=== PATIENT | female | born 1940 | race Caucasian/White ===

== ENCOUNTER 2018-08-28 11:28 | Emergency (ER) | payer OTHER ==
[2018-08-28] MEDS ORDERED: NS 500 ML IV ONE (12:05)
--- NOTE | 2018-08-28 12:10 | EDPHY ---
H & P Stated Complaint: bradycardia Time Seen by Provider: 08/28/18 11:42 HPI/ROS: CHIEF COMPLAINT: Bradycardia Limitations: dementia HISTORY OF PRESENT ILLNESS: 78-year-old female with advanced dementia and anxiety presents with bradycardia. She lives at home with her . This morning he checked her heart rate and heart rate was running in the 40s. She was somewhat sleepy, but otherwise felt normal. No chest pain or shortness of breath. Saw her PCP this morning, who sent her to the emergency department for further evaluation. Her usual heart rate is in the 70s. Started Remeron 3 weeks ago, no other medication changes. No recent illness. Chronic hypoxia, on home O2 at 2 L by nasal cannula. Usual oxygen saturation on room air is 85%. REVIEW OF SYSTEMS: 10 point ROS reviewed with pt and and is negative except for the noted elements in the HPI - Personal History Current Tetanus/Diphtheria Vaccine: Yes Current Tetanus Diphtheria and Acellular Pertussis (TDAP): Yes - Medical/Surgical History Hx Asthma: No Hx Chronic Respiratory Disease: No Hx Diabetes: No Hx Cardiac Disease: No Hx Renal Disease: No Hx Cirrhosis: No Hx Alcoholism: Yes Hx HIV/AIDS: No Hx Splenectomy or Spleen Trauma: No Other PMH: Dementia, HTN, HYPOTHYROID, PE, GERD, chronic pain with narcotic dependence, alcohol abuse. cataract surgery, retina surgery, appendectomy, ankle fusion, right knee surgery - Social History Smoking Status: Never smoked - Physical Exam Exam: General Appearance: Alert, pleasant Eyes: Pupils equal and round, no conjunctival pallor or injection ENT, Mouth: Mucous membranes moist Neck: Normal inspection Respiratory: Lungs are clear to auscultation Cardiovascular: Regular bradycardia Gastrointestinal: Abdomen is soft and nontender Neurological: Alert, nonfocal exam Skin: Warm and dry, no rash Extremities: Normal inspection Psychiatric: Mood and affect normal Constitutional: Initial Vital Signs Temperature (C) 37 C 08/28/18 11:38 Heart Rate 54 L 08/28/18 11:38 Respiratory Rate 16 08/28/18 11:38 Blood Pressure 167/79 H 08/28/18 11:38 O2 Sat (%) 86 L 08/28/18 11:38 O2 Delivery Mode Room Air O2 (L/minute) 2 Allergies/Adverse Reactions: lanolin Allergy (Severe, Verified 08/28/18 11:34) Rash bacitracin Allergy (Verified 08/28/18 11:34) codeine [Codeine] Allergy (Verified 08/28/18 11:34) neomycin Allergy (Verified 08/28/18 11:34) polymyxin B Allergy (Verified 08/28/18 11:34) ADHESIVES Allergy (Uncoded 08/28/18 11:34) Home Medications: Medication Instructions Recorded Aspirin [Aspirin 81mg (*)] 81 mg PO DAILY 06/26/18 Herbals/Supplements -Info Only 1 ea PO DAILY 06/26/18 Levothyroxine [Synthroid 50 mcg 1 mcg PO DAILY06 06/26/18 (*)] Cholecalciferol Vit D3 [Vitamin D3 2,000 units PO DAILY 06/27/18 2000 units tab (OTC)] Cyanocobalamin [Vitamin B12 (*)] 500 mcg PO DAILY 06/27/18 [place]-3 Fatty Acids [Fish Oil 1000 1,000 mg PO DAILY 06/27/18 mg (*)] Sertraline HCl [Zoloft 25mg (*)] 25 mg PO DAILY 07/03/18 Demerol 08/28/18 Medical Decision Making - Diagnostics Imaging Results: Imaging Impressions Chest X-Ray 08/28/18 11:43 Impression: 1. New indistinct linear left basilar opacities that could be related to atelectasis or less likely pneumonia. 2. Stable mild cardiomegaly without maribell failure. Imaging: I viewed and interpreted images myself ED Course/Re-evaluation: This patient presents with a concern for bradycardia. Stat EKG reveals bradycardia, without ischemia or significant dysrhythmia. Laboratory tests are unremarkable. Dr. 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 During her ED observation, she remained bradycardic, with a heart rate ranging from the mid 40s to 60s. Blood pressure remained normal and the patient remained asymptomatic. Ambulated with a steady gait and denied dizziness. Will follow up in the office with [facility]. fixture maker results discussed with Dr. Madrid. The patient was in normal sinus rhythm throughout, with a heart rate mainly in the 70s, occasionally dipping to the 40s. She had a 5 beat run of ventricular tachycardia, asymptomatic. Dr. Madrid suggests following up with PCP. Results d/w pt and . Differential Diagnosis: Includes though is not limited to ventricular dysrhythmia, heart block, hypotension, electrolyte abnormality, acute coronary syndrome - Data Points Laboratory Results: Laboratory Results 08/28/18 12:02 08/28/18 12:02 08/28/18 08/28/18 08/28/18 12:06 12:02 12:02 WBC 8.97 10^3/uL 10^3/uL (3.80-9.50) RBC 4.50 10^6/uL 10^6/uL (4.18-5.33) Hgb 13.0 g/dL g/dL (12.6-16.3) Hct 41.0 % % (38.0-47.0) MCV 91.1 fL fL (81.5-99.8) MCH 28.9 pg pg (27.9-34.1) MCHC 31.7 g/dL L g/dL (32.4-36.7) RDW 13.5 % % (11.5-15.2) Plt Count 156 10^3/uL 10^3/uL (150-400) MPV 8.9 fL fL (8.7-11.7) Neut % (Auto) 57.4 % % (39.3-74.2) Lymph % (Auto) 30.2 % % (15.0-45.0) [place] % (Auto) 8.9 % % (4.5-13.0) Eos % (Auto) 2.9 % % (0.6-7.6) Baso % (Auto) 0.4 % % (0.3-1.7) Nucleat RBC Rel Count 0.0 % % (0.0-0.2) Absolute Neuts (auto) 5.14 10^3/uL 10^3/uL (1.70-6.50) Absolute Lymphs (auto) 2.71 10^3/uL 10^3/uL (1.00-3.00) Absolute Monos (auto) 0.80 10^3/uL 10^3/uL (0.30-0.80) Absolute Eos (auto) 0.26 10^3/uL 10^3/uL (0.03-0.40) Absolute Basos (auto) 0.04 10^3/uL 10^3/uL (0.02-0.10) Absolute Nucleated RBC 0.00 10^3/uL 10^3/uL (0-0.01) Immature Gran % 0.2 % % (0.0-1.1) Immature Gran # 0.02 10^3/uL 10^3/uL (0.00-0.10) Sodium 138 mEq/L mEq/L (135-145) Potassium 4.3 mEq/L mEq/L (3.5-5.2) Chloride 104 mEq/L mEq/L (97-110) Carbon Dioxide 27 mEq/l mEq/l (22-31) Anion Gap 7 mEq/L mEq/L (6-14) BUN 22 mg/dL mg/dL (7-23) Creatinine 1.0 mg/dL mg/dL (0.6-1.0) Estimated GFR 54 Glucose 87 mg/dL mg/dL (70-100) Calcium 8.9 mg/dL mg/dL (8.5-10.4) POC Troponin I 0.00 ng/mL ng/mL (0.00-0.08) Troponin I < 0.012 ng/mL ng/mL (0.000-0.034) NT-Pro-B Natriuret Pep 87 pg/mL pg/mL (0-450) Medications Given: Discontinued Medications Sodium Chloride (Ns) 500 mls @ 0 mls/hr IV ONCE ONE; Wide Open PRN Reason: Protocol Stop: 08/28/18 12:06 Last Admin: 08/28/18 12:15 Dose: 500 mls Point of Care Test Results: Chemistry 08/28/18 12:06 POC Troponin I 0.00 ng/mL ng/mL (0.00-0.08) Departure - Departure Disposition: Home, Routine, Self-Care Clinical Impression: Bradycardia Condition: Good Instructions: Bradycardia (ED) Additional Instructions: Return for dizziness, fainting, increasing weakness or any concerns. Referrals: Fariba Matos MD [Primary Care Provider] - As per Instructions Salinas Madrid MD [Medical Doctor] - As per Instructions (Follow-up in the office.)
[2018-08-28 12:14] LABS: PLATELET COUNT 156 10^3/uL (150-400)
[2018-08-28 14:18] VITALS: BP 170/85
--- NOTE | 2018-08-28 14:33 | CPEKG ---
Test Reason : OPEN Blood Pressure : / mmHG Vent. Rate : 047 BPM Atrial Rate : 047 BPM P-R Int : 165 ms QRS Dur : 092 ms QT Int : 484 ms P-R-T Axes : 046 -13 065 degrees QTc Int : 428 ms Sinus bradycardia Low voltage, extremity leads Confirmed by Maddy Moya ([id number]) on 08/28/2018 2:32:36 PM Referred By: Maddy Moya Confirmed By:Maddy Moya
--- NOTE | 2018-08-28 15:23 | ASMTCMCOM ---
CM Note CM Note Notes: Patient presets to the ED with her Edwar for concerns re bradycardia. See ED report for details. Chart reviewed from previous visits. CM note from 08/05/18 includes detailed social history, LTC planning, etc This CM met with patient and Edwar to check in regarding home support, etc. Patient is alert, pleasant, and answers yes/no questions appropriately. Denies any distress and appears ready to go home. Edwar explains that he has increased home visits (non medical) with [id number] from 3 days per week to 4, and this has been "very helpful". Edwar states that they have a scheduled visit tomorrow with [facility] and that they have worked out the insurance coverage and benefits for these services. Overall, Edwar appears to be managing well and resports that the increased HH/daycare has been helpful. 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 They have 3 adult children in the area including 2 daughters-one of which is an RN-and they are supportive and available "as needed". Edwar acknowledges that he may need to increase HH visits in the future and that he is taking the advice of "everyone" to take care of himself. Patient remains on a waitlist for [facility]/memory care and Edwar has looked into day care options at [facility] as well. This CM assured Edwar that I would reach out to Fariba (point of care specialist) at Dr.. Matos's office to provide an update re patient's visit (Dr. Matos suggested Edwar bring pt. to the ED for concerns of bradycardia). Fariba was confirmed updates from Edwar regading home situation and she believes Edwar is managing better as he has allowed more support in the home. CM aavialble for future needs prn Date Signed: 08/28/2018 03:22 PM Electronically Signed By:Naheed Orantes RN
== END 2018-08-28 14:18 | disposition home or self-care (01) ==
DX: R00.1 Bradycardia, unspecified (principal); E86.9 Volume depletion, unspecified; I10 Essential (primary) hypertension; F03.90 Unspecified dementia, unspecified severity, without behavioral disturbance, psychotic disturbance, mood disturbance, and anxiety; E03.9 Hypothyroidism, unspecified; G89.29 Other chronic pain
CPT/HCPCS: 84484-ER

== ENCOUNTER 2018-11-03 19:59 | Observation (INO) | payer OTHER ==
--- NOTE | 2018-11-03 20:08 | EDPHY ---
H & P Time Seen by Provider: 11/03/18 20:03 HPI/ROS: CHIEF COMPLAINT: Syncope HISTORY OF PRESENT ILLNESS: The patient is a 78-year-old female with a history of dementia who presents emergency department after having syncopal episode. The patient was at the grocery store with her . She is walking behind her when she suddenly dropped to the floor. The patient states she felt lightheaded and slightly dizzy. When I asked her what happened she stated "I fainted."She complained of mild chest pain prior to the incident but has no chest pain at this time. No shortness of breath. She has mild neck pain. No weakness or numbness. EMS reports that she had a normal glucose. She was hemodynamically stable. She has a small laceration under her chin. REVIEW OF SYSTEMS: 10 systems were reveiwed and are negative with the exception of the elements mentioned in the history of present illness. Past Medical/Surgical History: Includes dementia Social history: The patient is . She does not smoke. Smoking Status: Never smoked Physical Exam: Vitals noted GENERAL: No acute distress, alert. C-collar in place HEENT: Eyes normal to inspection, normal pharynx, no signs of dehydration. Chin has a 1 cm laceration. Bleeding controlled. NECK: Normal, supple. Mild diffuse cervical spine tenderness palpation. No deformity. RESPIRATORY: Clear to auscultation bilaterally, no rales, rhonchi or wheezing. No chest wall tenderness. CVS: Regular rate and rhythm, no rubs, murmurs, or gallops. ABDOMEN: Soft, nontender, nondistended, no organomegaly. BACK: Normal to inspection with no bruising, no CVA tenderness. No spinal tenderness. Pelvis: Stable SKIN: Normal color, no rash, warm, dry. No pallor. EXTREMITIES: No pedal edema, no calf tenderness, no Homans sign or cords, no joint swelling. NEURO/PSYCH: Alert and oriented x2, normal mood and affect, normal motor sensory exam. No obvious cranial nerve deficit. Constitutional: Initial Vital Signs Temperature (C) 36.8 C 11/03/18 20:03 Heart Rate 53 L 11/03/18 20:03 Respiratory Rate 16 11/03/18 20:03 Blood Pressure 95/51 L 11/03/18 20:03 O2 Sat (%) 84 L 11/03/18 20:03 O2 Delivery Mode Room Air O2 (L/minute) 6 Allergies/Adverse Reactions: lanolin Allergy (Severe, Verified 08/28/18 11:34) Rash bacitracin Allergy (Verified 08/28/18 11:34) codeine [Codeine] Allergy (Verified 08/28/18 11:34) neomycin Allergy (Verified 08/28/18 11:34) polymyxin B Allergy (Verified 08/28/18 11:34) ADHESIVES Allergy (Uncoded 08/28/18 11:34) Home Medications: Medication Instructions Recorded Aspirin [Aspirin 81mg (*)] 81 mg PO DAILY 06/26/18 Herbals/Supplements -Info Only 1 ea PO DAILY 06/26/18 Levothyroxine [Synthroid 50 mcg 1 mcg PO DAILY06 06/26/18 (*)] Cholecalciferol Vit D3 [Vitamin D3 2,000 units PO DAILY 06/27/18 2000 units tab (OTC)] Cyanocobalamin [Vitamin B12 (*)] 500 mcg PO DAILY 06/27/18 [place]-3 Fatty Acids [Fish Oil 1000 1,000 mg PO DAILY 06/27/18 mg (*)] Sertraline HCl [Zoloft 25mg (*)] 25 mg PO DAILY 07/03/18 Demerol 08/28/18 Medical Decision Making - Diagnostics Imaging Results: Imaging Impressions Chest X-Ray 11/03/18 20:04 Impression: No acute findings in the chest. ED Course/Re-evaluation: I met EMS on arrival. I took report from the supportability engineer. In the emergency department I discussed possible etiologies with the patient. I answered her questions. Laboratory studies, CT imaging, EKG and chest x-ray were ordered. EKG shows sinus rhythm at 54. Normal axis. Normal intervals. Flipped T-waves V1 through V5. EKG was compared with previous EKG from 08/28/2018. On the previous EKG there were no flipped T-waves Patient's white count is elevated 11. Chemistry panel is unremarkable. Troponin is negative. Head CT: No acute disease noted Cervical CT: Please refer the dictated report. The patient has subluxation at C5-C6. Patient has significant degenerative disease and Radiology feels this is most likely degenerative disease rather than acute injury. I rechecked the patient. She had no significant neck tenderness to palpation on repeat exam. She had no focal deficits. I feel the collar was uncomfortable for the patient and this was removed. Discussed the case with Dr. Reece from the hospitalist service. The patient will be admitted for further evaluation for syncopal episode and fall. Differential Diagnosis: My differential includes but is not limited to syncope, ACS, acute CA, dysrhythmia, electrolyte abnormality, sugar abnormality, ischemic CVA, hemorrhagic CVA, dissection, aneurysm - Data Points Laboratory Results: Laboratory Results 11/03/18 20:10 11/03/18 20:10 11/03/18 11/03/18 11/03/18 20:12 20:10 20:10 WBC RBC Hgb Hct MCV MCH MCHC RDW Plt Count MPV Neut % (Auto) Lymph % (Auto) [place] % (Auto) Eos % (Auto) Baso % (Auto) Nucleat RBC Rel Count Absolute Neuts (auto) Absolute Lymphs (auto) Absolute Monos (auto) Absolute Eos (auto) Absolute Basos (auto) Absolute Nucleated RBC Immature Gran % Immature Gran # PT 13.3 SEC SEC (12.0-15.0) INR 1.05 (0.83-1.16) APTT 28.5 SEC SEC (23.0-38.0) Sodium 140 mEq/L mEq/L (135-145) Potassium 3.9 mEq/L mEq/L (3.5-5.2) Chloride 105 mEq/L mEq/L (97-110) Carbon Dioxide 23 mEq/l mEq/l (22-31) Anion Gap 12 mEq/L mEq/L (6-14) BUN 21 mg/dL mg/dL (7-23) Creatinine 1.0 mg/dL mg/dL (0.6-1.0) Estimated GFR 54 Glucose 131 mg/dL H mg/dL (70-100) Calcium 9.3 mg/dL mg/dL (8.5-10.4) POC Troponin I 0.00 ng/mL ng/mL (0.00-0.08) 11/03/18 20:10 WBC 11.01 10^3/uL H 10^3/uL (3.80-9.50) RBC 5.19 10^6/uL 10^6/uL (4.18-5.33) Hgb 15.0 g/dL g/dL (12.6-16.3) Hct 46.8 % % (38.0-47.0) MCV 90.2 fL fL (81.5-99.8) MCH 28.9 pg pg (27.9-34.1) MCHC 32.1 g/dL L g/dL (32.4-36.7) RDW 14.4 % % (11.5-15.2) Plt Count 177 10^3/uL 10^3/uL (150-400) MPV 9.6 fL fL (8.7-11.7) Neut % (Auto) 53.0 % % (39.3-74.2) Lymph % (Auto) 35.4 % % (15.0-45.0) [place] % (Auto) 8.6 % % (4.5-13.0) Eos % (Auto) 2.1 % % (0.6-7.6) Baso % (Auto) 0.5 % % (0.3-1.7) Nucleat RBC Rel Count 0.0 % % (0.0-0.2) Absolute Neuts (auto) 5.83 10^3/uL 10^3/uL (1.70-6.50) Absolute Lymphs (auto) 3.90 10^3/uL H 10^3/uL (1.00-3.00) Absolute Monos (auto) 0.95 10^3/uL H 10^3/uL (0.30-0.80) Absolute Eos (auto) 0.23 10^3/uL 10^3/uL (0.03-0.40) Absolute Basos (auto) 0.06 10^3/uL 10^3/uL (0.02-0.10) Absolute Nucleated RBC 0.00 10^3/uL 10^3/uL (0-0.01) Immature Gran % 0.4 % % (0.0-1.1) Immature Gran # 0.04 10^3/uL 10^3/uL (0.00-0.10) PT INR APTT Sodium Potassium Chloride Carbon Dioxide Anion Gap BUN Creatinine Estimated GFR Glucose Calcium POC Troponin I Point of Care Test Results: Chemistry 11/03/18 20:12 POC Troponin I 0.00 ng/mL ng/mL (0.00-0.08) Departure - Departure Disposition: [facility] Acute Clinical Impression: Syncope Qualifiers: Syncope type: unspecified Qualified Code(s): R55 - Syncope and collapse Laceration of chin Qualifiers: Encounter type: initial encounter Qualified Code(s): S01.81XA - Laceration without foreign body of other part of head, initial encounter Condition: Good Referrals: Fariba Matos MD [Primary Care Provider] - As per Instructions
[2018-11-03 20:18] LABS: PLATELET COUNT 177 10^3/uL (150-400)
[2018-11-03 20:26] LABS: INR 1.05 (0.83-1.16); PROTIME(PATIENT) 13.3 SEC (12.0-15.0)
--- NOTE | 2018-11-03 21:38 | EDPHY ---
IRAIDA Addendum - Addendum .: Procedure: Laceration repair. Verbal consent was obtained from the patient. The 3.5 cm, irregular, T shaped laceration on the right side of the chin was anesthetized in the usual fashion using 6 mL of 1% lidocaine with epinephrine. The wound was irrigated, draped and explored to its base with a gloved finger. There were no deep structures involved. No tendon injury was identified. The wound was repaired with #4, 5- 0 Prolene simple interrupted pattern. Good hemostasis was achieved and patient tolerated procedure well. Bacitracin and clean sterile dressing applied. The procedure was performed by myself.
[2018-11-03] MEDS ORDERED: ACETAMINOPHEN 325 MG TAB PO PRN (21:57)
[2018-11-03] MEDS ORDERED: ONDANSETRON DISINTEGRATING 4 MG TAB PO PRN (21:57)
[2018-11-03] MEDS ORDERED: ONDANSETRON 4 MG/2 ML VIAL IVP PRN (21:57)
--- NOTE | 2018-11-03 22:07 | PDGENHP ---
<Georgia Jensen - Last Filed: 11/03/18 22:33> History and Physical - Chief Complaint Syncope - History of Present Illness This is a 78-year-old female with history of dementia presenting to the emergency room status post syncopal event today at the grocery store with her . She was walking behind him when she fell. He quickly turned around and found her on the ground. When questioning her, she said she felt lightheaded and mildly dizzy before she fell. It is difficult to get a clear picture as to correct events as she has dementia and is a poor historian and her did not witness this fall. At the moment. She denies any pain to her head neck and joints. She did have a laceration on her chin which was stitched up in the emergency room. She had the following images while here: A cervical spine CT without contrast with no definite acute displaced fracture, it was noted a C5 subluxation causing moderate central spinal stenosis however is likely due to degenerative in nature as no acute fracture lines or soft tissue swelling is identified; chest x-ray shows no acute; head CT without IV contrast shows no acute intracranial hemorrhage; EKG sinus rhythm with borderline left axis deviation and nonspecific T-wave abnormalities which is a change from previous EKGs earlier in the year. She did complain of mild chest pain prior to the incident however is not complain of this any longer. Per EMS , glucose was normal. She is being admitted for further workup, treatment, and monitoring. History Information - Allergies/Home Medication List Allergies/Adverse Reactions: lanolin Allergy (Severe, Verified 08/28/18 11:34) Rash bacitracin Allergy (Verified 08/28/18 11:34) codeine [Codeine] Allergy (Verified 08/28/18 11:34) neomycin Allergy (Verified 08/28/18 11:34) polymyxin B Allergy (Verified 08/28/18 11:34) ADHESIVES Allergy (Uncoded 08/28/18 11:34) Home Medications: Aspirin [Aspirin 81mg (*)] 81 mg PO DAILY 06/26/18 [Last Taken 11/03/18] Levothyroxine [Synthroid 50 mcg (*)] 50 mcg PO DAILY06 06/26/18 [Last Taken ] Cholecalciferol Vit D3 [Vitamin D3 2000 units tab (OTC)] 2,000 units PO DAILY [Last Taken 11/03/18] Cyanocobalamin [Vitamin B12 (*)] 500 mcg PO DAILY 06/27/18 [Last Taken 11/03/18] Sidney-3 Fatty Acids [Fish Oil 1000 mg (*)] 1,000 mg PO DAILY 06/27/18 [Last Taken 11/03/18] Mirtazapine 7.5 mg PO DAILY 11/03/18 [Last Taken 11/03/18] Sertraline HCl [Zoloft 50mg (*)] 50 mg PO DAILY 11/03/18 [Last Taken 11/03/18] I have personally reviewed and updated: family history, medical history, social history, surgical history - Past Medical History atrial fibrillation (I do not believe the patient has atrial fibrillation as she recently had a Holter monitor on in July 2018 and found no arrhythmias), dementia, DVT, GERD, hypertension, pulmonary embolism - Surgical History Reports: no pertinent surgical hx - Family History Positive for: non-pertinent - Social History Smoking Status: Never smoked Alcohol Use: None Drug Use: None Additional social history: , at bedside Review of Systems Review of Systems: ROS: 10pt was reviewed & negative except for what was stated in HPI & below Physical Exam Physical Exam: Lab data and imaging were reviewed. White blood cell count: 11.01 Hemoglobin hematocrit: 15.0 and 46.8 Platelet count: 177 Sodium: 140 Potassium: 3.9 Chloride: 105 Carbon dioxide: 23 BUN/Cr: 21/1.0 INR: 1.05 Trop: 0.00 EKG, cervical spine CT, chest x-ray, and head CT: See HPI Temp Pulse Resp BP Pulse Ox 37.0 C 73 16 133/81 H 95 11/03/18 21:42 11/03/18 21:42 11/03/18 21:42 11/03/18 21:42 11/03/18 21:42 O2 (L/minute) 4 Constitutional: uncomfortable Eyes: PERRL, anicteric sclera, EOMI Ears, Nose, Mouth, Throat: hearing normal, ears appear normal, no oral mucosal ulcers, dry mucous membranes Cardiovascular: regular rate and rhythym, no murmur, rub, or gallop, No edema Peripheral Pulses: 2+: dorsalis-pedis (R), dorsalis-pedis (L) Respiratory: no respiratory distress, no rales or rhonchi, clear to auscultation Gastrointestinal: normoactive bowel sounds, soft, non-tender abdomen, no palpable masses Genitourinary: no bladder fullness, no bladder tenderness Skin: abrasion (On right side of chin) Musculoskeletal: full muscle strength, no muscle tenderness, normal joint ROM, no joint effusions Neurologic: sensation intact bilaterally, CN II-XII Intact Psychiatric: not anxious, not encephalopathic, thought process linear, poor memory Lymph, Heme, Immunologic: no cervical LAD, no supraclavicular LAD Lab Data & Imaging Review 11/03/18 20:10 11/03/18 20:10 WBC 11.01 10^3/uL (3.80-9.50) H 11/03/18 20:10 RBC 5.19 10^6/uL (4.18-5.33) 11/03/18 20:10 Hgb 15.0 g/dL (12.6-16.3) 11/03/18 20:10 Hct 46.8 % (38.0-47.0) 11/03/18 20:10 MCV 90.2 fL (81.5-99.8) 11/03/18 20:10 MCH 28.9 pg (27.9-34.1) 11/03/18 20:10 MCHC 32.1 g/dL (32.4-36.7) L 11/03/18 20:10 RDW 14.4 % (11.5-15.2) 11/03/18 20:10 Plt Count 177 10^3/uL (150-400) 11/03/18 20:10 MPV 9.6 fL (8.7-11.7) 11/03/18 20:10 Neut % (Auto) 53.0 % (39.3-74.2) 11/03/18 20:10 Lymph % (Auto) 35.4 % (15.0-45.0) 11/03/18 20:10 [place] % (Auto) 8.6 % (4.5-13.0) 11/03/18 20:10 Eos % (Auto) 2.1 % (0.6-7.6) 11/03/18 20:10 Baso % (Auto) 0.5 % (0.3-1.7) 11/03/18 20:10 Nucleat RBC Rel Count 0.0 % (0.0-0.2) 11/03/18 20:10 Absolute Neuts (auto) 5.83 10^3/uL (1.70-6.50) 11/03/18 20:10 Absolute Lymphs (auto) 3.90 10^3/uL (1.00-3.00) H 11/03/18 20:10 Absolute Monos (auto) 0.95 10^3/uL (0.30-0.80) H 11/03/18 20:10 Absolute Eos (auto) 0.23 10^3/uL (0.03-0.40) 11/03/18 20:10 Absolute Basos (auto) 0.06 10^3/uL (0.02-0.10) 11/03/18 20:10 Absolute Nucleated RBC 0.00 10^3/uL (0-0.01) 11/03/18 20:10 Immature Gran % 0.4 % (0.0-1.1) 11/03/18 20:10 Immature Gran # 0.04 10^3/uL (0.00-0.10) 11/03/18 20:10 PT 13.3 SEC (12.0-15.0) 11/03/18 20:10 INR 1.05 (0.83-1.16) 11/03/18 20:10 APTT 28.5 SEC (23.0-38.0) 11/03/18 20:10 Sodium 140 mEq/L (135-145) 11/03/18 20:10 Potassium 3.9 mEq/L (3.5-5.2) 11/03/18 20:10 Chloride 105 mEq/L (97-110) 11/03/18 20:10 Carbon Dioxide 23 mEq/l (22-31) 11/03/18 20:10 Anion Gap 12 mEq/L (6-14) 11/03/18 20:10 BUN 21 mg/dL (7-23) 11/03/18 20:10 Creatinine 1.0 mg/dL (0.6-1.0) 11/03/18 20:10 Estimated GFR 54 11/03/18 20:10 Glucose 131 mg/dL (70-100) H 11/03/18 20:10 Calcium 9.3 mg/dL (8.5-10.4) 11/03/18 20:10 POC Troponin I 0.00 ng/mL (0.00-0.08) 11/03/18 20:12 Assessment & Plan Plan: This is a 78-year-old female with history of dementia and deep vein thrombosis, GERD, hypertension and pulmonary embolism presenting after an acute syncopal event with unknown origin. #Syncope w/ unknown origin -cycle troponins every 6 hr x2 -continuous tele monitoring -EKG in the morning, and EKG p.r.n. If symptomatic or condition worsens -echo completed in the morning -ordered cards consult however did not speak to Cardiology; will defer to the morning -orthostatic vitals 1 time -physical therapy and occupational therapy to evaluate and treat # vague chest pain -patient reported to ED of mild chest pain prior to the event which was not present during evaluation and for that reason we will perform actions noted above -she was recently placed on a 30 day monitoring which concluded end of July 2018. Impression of this testing was baseline rhythm was normal sinus rhythm with average heart rate of 73 beats per minute. There was no atrial fibrillation noted in this study. There was a normal pre ventricular contraction burden. There was a 5 beat run of ventricular tachycardia without symptoms -Holding ASA and omega-3 for now d/t syncope event #Depression: cont zoloft and remeron #Hypothyroidism: cont L4T Diet: Regular Code: Full VTE ppx: SCDs Dispo: admit to obs <Gustavo Wan - Last Filed: 11/03/18 23:03> History and Physical - History of Present Illness Review of Systems Review of Systems: Physical Exam Physical Exam: Temp Pulse Resp BP Pulse Ox 36.7 C 53 L 16 140/79 H 92 11/03/18 22:26 11/03/18 22:26 11/03/18 22:26 11/03/18 22:26 11/03/18 22:26 O2 (L/minute) 4 Lab Data & Imaging Review 11/03/18 20:10 11/03/18 20:10 WBC 11.01 10^3/uL (3.80-9.50) H 11/03/18 20:10 RBC 5.19 10^6/uL (4.18-5.33) 11/03/18 20:10 Hgb 15.0 g/dL (12.6-16.3) 11/03/18 20:10 Hct 46.8 % (38.0-47.0) 11/03/18 20:10 MCV 90.2 fL (81.5-99.8) 11/03/18 20:10 MCH 28.9 pg (27.9-34.1) 11/03/18 20:10 MCHC 32.1 g/dL (32.4-36.7) L 11/03/18 20:10 RDW 14.4 % (11.5-15.2) 11/03/18 20:10 Plt Count 177 10^3/uL (150-400) 11/03/18 20:10 MPV 9.6 fL (8.7-11.7) 11/03/18 20:10 Neut % (Auto) 53.0 % (39.3-74.2) 11/03/18 20:10 Lymph % (Auto) 35.4 % (15.0-45.0) 11/03/18 20:10 [place] % (Auto) 8.6 % (4.5-13.0) 11/03/18 20:10 Eos % (Auto) 2.1 % (0.6-7.6) 11/03/18 20:10 Baso % (Auto) 0.5 % (0.3-1.7) 11/03/18 20:10 Nucleat RBC Rel Count 0.0 % (0.0-0.2) 11/03/18 20:10 Absolute Neuts (auto) 5.83 10^3/uL (1.70-6.50) 11/03/18 20:10 Absolute Lymphs (auto) 3.90 10^3/uL (1.00-3.00) H 11/03/18 20:10 Absolute Monos (auto) 0.95 10^3/uL (0.30-0.80) H 11/03/18 20:10 Absolute Eos (auto) 0.23 10^3/uL (0.03-0.40) 11/03/18 20:10 Absolute Basos (auto) 0.06 10^3/uL (0.02-0.10) 11/03/18 20:10 Absolute Nucleated RBC 0.00 10^3/uL (0-0.01) 11/03/18 20:10 Immature Gran % 0.4 % (0.0-1.1) 11/03/18 20:10 Immature Gran # 0.04 10^3/uL (0.00-0.10) 11/03/18 20:10 PT 13.3 SEC (12.0-15.0) 11/03/18 20:10 INR 1.05 (0.83-1.16) 11/03/18 20:10 APTT 28.5 SEC (23.0-38.0) 11/03/18 20:10 Sodium 140 mEq/L (135-145) 11/03/18 20:10 Potassium 3.9 mEq/L (3.5-5.2) 11/03/18 20:10 Chloride 105 mEq/L (97-110) 11/03/18 20:10 Carbon Dioxide 23 mEq/l (22-31) 11/03/18 20:10 Anion Gap 12 mEq/L (6-14) 11/03/18 20:10 BUN 21 mg/dL (7-23) 11/03/18 20:10 Creatinine 1.0 mg/dL (0.6-1.0) 11/03/18 20:10 Estimated GFR 54 11/03/18 20:10 Glucose 131 mg/dL (70-100) H 11/03/18 20:10 Calcium 9.3 mg/dL (8.5-10.4) 11/03/18 20:10 POC Troponin I 0.00 ng/mL (0.00-0.08) 11/03/18 20:12 Assessment & Plan Assessment: Laceration of chin (Acute) Syncope (Acute) Plan: Patient seen and evaluated independently and care plan reviewed with MARY Jensen, agree with her assessment and plan as outlined above. Please see separate documentation for further details.
--- NOTE | 2018-11-03 23:12 | HOSPPROG ---
Hospitalist Progress Note Assessment/Plan: 78 yo F with severe dementia, hx of p afib and recurrent episodes concerning for syncope presenting with syncope # syncope: apparently patient has had prior episodes of falling off of couch or other circumstances where there was a question of syncope, several admissions in the last several months without etiology found--has had echo, CTA, brain MRI , 30 day holter monitor and no clear explanation. Thought to be neurogenic possibly in the past with witnessed spells that were not c/w syncope or seizure. Repeat event today and patient feel on face in grocery store. There have been reports of a fib and ? of SSS, in review of OP records she has been having HR in the 40s intermittently and noted to be in the 40s on tele in ER. Plan to monitor on tele, will consult cardiology for for report of holter monitoring etc. Defer echo given one performed in last 6 months. # fall: with facial trauma and laceration repaired in ER, head ct with nothing acute, neck ct with subluxation at c5 thought to be more likely degenerative rather than due to trauma, c collar removed in ER. Currently not reporting neck pain, however if that occurs consider MRI c spine for further eval # dementia: advanced, patient living with independently though home health involved # paroxysmal a fib: noted on prior hospital stays and as above # FTT: overall sounds like patient quite debilitated, reviewing notes APS has been called to the home in the past, though now with home health x 4 months reports situation is better, has had OP hospice eval but remains FC and per hospice note patient very clear about that. PT/OT/CM to be involved. # observation status Patient new to my care. Old records reviewed and summarized as above. Care plan reviewed with ER doctor, hx largely obtained from at bedside given patients dementia, reviewed care plan with MARY Jensen, see separate H&P for further details. Objective: Vital Signs Temp Pulse Resp BP Pulse Ox 36.7 C 53 L 16 140/79 H 92 11/03/18 22:26 11/03/18 22:26 11/03/18 22:26 11/03/18 22:26 11/03/18 22:26 PT 13.3 SEC (12.0-15.0) 11/03/18 20:10 INR 1.05 (0.83-1.16) 04/15/19 20:10 ICD10 Worksheet Patient Problems: Problems Problem Status Onset Laceration of chin Acute Syncope Acute Pulmonary embolism Acute Shortness of breath Acute
--- NOTE | 2018-11-03 23:13 | CPEKG ---
Test Reason : OPEN Blood Pressure : / mmHG Vent. Rate : 054 BPM Atrial Rate : 054 BPM P-R Int : 154 ms QRS Dur : 100 ms QT Int : 462 ms P-R-T Axes : 037 -25 043 degrees QTc Int : 438 ms Sinus rhythm Borderline left axis deviation Low voltage, extremity leads Nonspecific T abnrm, anterolateral leads Confirmed by Lacy Che ([id number]) on 11/03/2018 11:12:26 PM Referred By: Lacy Che Confirmed By:Lacy Che
[2018-11-04] MEDS: LEVOTHYROXINE 50 MCG TAB PO SCH (06:51)
[2018-11-04] MEDS: CYANO/VITAMIN B12 1000 MCG TAB PO SCH (08:28)
[2018-11-04] MEDS: MIRTAZAPINE 15 MG TAB PO SCH (08:29)
[2018-11-04] MEDS: SERTRALINE HCL 50 MG TAB PO SCH (08:29)
[2018-11-04] MEDS: CHOLECALCIFEROL VIT D3 2,000 UNITS TAB/CAP PO SCH (08:29)
[2018-11-04] MEDS ORDERED: NS 1,000 ML IV SCH (12:00)
--- NOTE | 2018-11-04 13:32 | GCON ---
[f rep st] CONSULTATION CARDIOLOGY CONSULTATION REFERRING PHYSICIAN: Chau Fontana DO REASON FOR CONSULTATION: We were asked by Dr. Chau Fontana of [facility] to evaluate the patie nt for her syncope. HISTORY OF PRESENT ILLNESS: The patient is a 78-year-old female with dementia, chronic hypoxic respi ratory failure, hypothyroidism who is admitted for syncope. She has had multiple previous admissions for syncope. Her June admission was reviewed today. Patient is new to me. Patient is able to provide little information about the episode yesterday. She states that she may h ave become lightheaded preceding the event. She denies any current chest pain, dyspnea, palpitations , presyncope, syncope. She is not noting any pain on her chin or other body parts due to her recent fall. It is reported that she was at the grocery store with her yesterday and proceeded to f all. This was not witnessed. She did have a laceration on her chin. Imaging of her head with CT sh owed no acute intracranial hemorrhage or fracture. Cervical spine CT showed no definite acute fractu re. She was noted to be hypotensive at 95/51 with a heart rate of 53 upon arrival. She has proceede d to 30 day event monitoring in July, which showed no atrial fibrillation, pauses, or any signific ant PVC burden. Echo from 06/26/2018 showed shows EF of 64, mild MR, mild TR, and RVSP of 34 mmHg. Consultation note from Dr. Madrid dated 06/28/2018, states that patient had atrial fibrillation seen on the June a dmission. I do not have access to these EKGs from this admission. PAST MEDICAL HISTORY: 1. PAF. 2. Dementia. 3. GERD. 4. Previous PE. 5. Chronic hypoxic respiratory failure. ALLERGIES: To multiple agents including lanolin, bacitracin, codeine, neomycin, polymyxin, adhesives . OUTPATIENT MEDICATIONS: Include levothyroxine, vitamin B12, vitamin D3, aspirin, sertraline, and ome ga-3 fatty acids. SURGICAL HISTORY: Breast biopsy. SOCIAL HISTORY: Patient is a never smoker and does not drink alcohol. She is . PHYSICAL EXAMINATION: VITAL SIGNS: BP of 140/79, heart rate 53, respirations 16, O2 saturation 92% on room air, temp of 98 degrees Fahrenheit. GENERAL: She is a very pleasant female, oriented to shilpi f and place. She states the year is 2018. HEENT: Normocephalic. Eyes are without scleral icterus. She has a large area of ecchymosis under her right chin. HEART: Regular rate and rhythm with no r ubs, gallops, or murmurs. LUNGS: Clear. ABDOMEN: Soft with normoactive bowel sounds. : Withou t Gutierrez present. SKIN: Warm and dry. PSYCH: Patient is calm and has an appropriate mood and affec t for given situation. LABORATORY/IMAGING: CBC with WBC 11.01, hemoglobin 15, hematocrit 46.8, platelet count of 177. BMP with sodium 140, potassium 3.9, chloride 105, CO2 23, BUN 21, creatinine 1, glucose of 131. Troponin s are negative x3. 12-lead ECG personally interpreted demonstrates sinus rhythm with no ST-T wave abnormalities. Telemetry reviewed shows no Damon or tachyarrhythmias. IMPRESSION AND PLAN: The patient presents with an episode of syncope. Syncope. Her orthostatics are significant for a 20 mmHg drop in her blood pressure. Given her demen tia, we would recommend conservative measures, including increased hydration, p.o. intake, compressiv e stockings for ambulation, and walker with a seat for ambulation. We could definitely repeat a cong tor with telemetry monitoring. We would defer implantable monitors at this point given her dementia; however, should her family or primary care physician wish to pursue this, this can be pursued in the outpatient setting. /[id number]/MODL
--- NOTE | 2018-11-04 15:29 | HOSPPROG ---
Hospitalist Progress Note Assessment/Plan: 78 yo F with severe dementia, hx of p afib and recurrent episodes concerning for syncope presenting with syncope # syncope: apparently patient has had prior episodes of falling off of couch or other circumstances where there was a question of syncope, several admissions in the last several months without etiology found--has had echo, CTA, brain MRI , 30 day holter monitor and no clear explanation. Thought to be neurogenic possibly in the past with witnessed spells that were not c/w syncope or seizure. Repeat event on day of admission and patient feel on face in grocery store. There have been reports of a fib and ? of SSS, in review of OP records she has been having HR in the 40s intermittently and noted to be in the 40s on tele in ER. Plan to monitor on tele. Cardiology consulted this AM who recommend repeat 30 day monitor upon discharge. Orthostatic VS positive on admission, will continue maintenance IVF overnight # fall: with facial trauma and laceration repaired in ER, head ct with nothing acute, neck ct with subluxation at c5 thought to be more likely degenerative rather than due to trauma, c collar removed in ER. Currently not reporting neck pain, however if that occurs consider MRI c spine for further eval # dementia: advanced, patient living with independently though home health involved # paroxysmal a fib: noted on prior hospital stays and as above # FTT: overall sounds like patient quite debilitated, reviewing notes APS has been called to the home in the past, though now with home health x 4 months reports situation is better, has had OP hospice eval but remains FC and per hospice note patient very clear about that. PT/OT/CM to be involved. Subjective: Pt reports no complaints this AM Objective: Vital Signs Temp Pulse Resp BP Pulse Ox 36.9 C 66 18 120/66 97 11/04/18 15:07 11/04/18 15:07 11/04/18 15:07 11/04/18 15:07 11/04/18 15:07 PT 13.3 SEC (12.0-15.0) 11/03/18 20:10 INR 1.05 (0.83-1.16) 11/03/18 20:10 - Physical Exam Constitutional: chronically ill appearing Eyes: PERRL Ears, Nose, Mouth, Throat: dry mucous membranes Cardiovascular: bradycardia Respiratory: no respiratory distress Gastrointestinal: soft, non-tender abdomen Skin: warm Musculoskeletal: generalized weakness Neurologic: No AAOx3 Psychiatric: interacting appropriately ICD10 Worksheet Patient Problems: Problems Problem Status Onset Laceration of chin Acute Syncope Acute Pulmonary embolism Acute Shortness of breath Acute
--- NOTE | 2018-11-04 15:54 | ASMTCMCOM ---
CM Note CM Note Notes: Pts case discussed in tx rounds. Pt is a 78 y/o female admitted for a syncopal episode at the grocery store. PT has cleared pt to d/c home with 11/02 supervision. OT has cleared pt home without any needs. CM met w/ pts . Pt is current w/ [facility] for private duty caregivers. Pt has them Saturday- from 10AM-4PM and on evenings if they need it. Pts is available when the caregivers are not there. CM available for changes. Plan: Independent w/ supervision from private duty caregivers Date Signed: 11/04/2018 03:53 PM Electronically Signed By:FARNAZ Cheema
[2018-11-05] MEDS: LEVOTHYROXINE 50 MCG TAB PO SCH (04:50)
--- NOTE | 2018-11-05 05:37 | CPEKG ---
Test Reason : OPEN Blood Pressure : / mmHG Vent. Rate : 053 BPM Atrial Rate : 052 BPM P-R Int : 178 ms QRS Dur : 092 ms QT Int : 456 ms P-R-T Axes : 033 -27 023 degrees QTc Int : 429 ms Sinus rhythm Borderline left axis deviation Low voltage, extremity and precordial leads Nonspecific T abnormalities, anterior leads Compared with 11/03/2018, no signfiicant change Confirmed by Consuelo Razo ([id number]) on 11/05/2018 5:36:52 AM Referred By: Gustavo Wan Confirmed By:Consuelo Razo
[2018-11-05 07:55] VITALS: BP 121/75
[2018-11-05] MEDS: CYANO/VITAMIN B12 1000 MCG TAB PO SCH (10:45)
[2018-11-05] MEDS: SERTRALINE HCL 50 MG TAB PO SCH (10:45)
[2018-11-05] MEDS: MIRTAZAPINE 15 MG TAB PO SCH (10:46)
[2018-11-05] MEDS: CHOLECALCIFEROL VIT D3 2,000 UNITS TAB/CAP PO SCH (10:47)
--- NOTE | 2018-11-05 12:57 | PDDCSUM ---
Discharge Summary Discharge Summary: Date of Admission: 11/03/2018 Date of Discharge: 11/05/2018 Consults: Cardiology Procedures: Head CT, C Spine CT Followup: Cardiology (repeat 30 day monitor), PCP Hospital Course problem List: 78 yo F with severe dementia, hx of p afib and recurrent episodes concerning for syncope presenting with syncope # syncope: apparently patient has had prior episodes of falling off of couch or other circumstances where there was a question of syncope, several admissions in the last several months without etiology found--has had echo, CTA, brain MRI , 30 day holter monitor and no clear explanation. Thought to be neurogenic possibly in the past with witnessed spells that were not c/w syncope or seizure. Repeat event on day of admission and patient feel on face in grocery store. There have been reports of a fib and ? of SSS, in review of OP records she has been having HR in the 40s intermittently and noted to be in the 40s on tele in ER. Plan to monitor on tele. Cardiology consulted who recommend repeat 30 day monitor upon discharge. Orthostatic VS positive on admission, s/p IVF ' # fall: with facial trauma and laceration repaired in ER, head ct with nothing acute, neck ct with subluxation at c5 thought to be more likely degenerative rather than due to trauma, c collar removed in ER. Currently not reporting neck pain, however if that occurs consider MRI c spine for further eval in the future # dementia: advanced, patient living with independently though home health involved # paroxysmal a fib: noted on prior hospital stays and as above # FTT: overall sounds like patient quite debilitated, reviewing notes APS has been called to the home in the past, though now with home health x 4 months reports situation is better, has had OP hospice eval but remains FC and per hospice note patient very clear about that. PT/OT/CM Time spent on discharge was >35 minutes with >50% of time spent on patient education and counseling.
== END 2018-11-05 13:54 | disposition home or self-care (01) ==
LOC: EDUNIT# → F2W 22:19
PROVIDERS: ADMIT Internal Medicine; ATTEND Internal Medicine
PROC: 0HQ1XZZ Repair Face Skin, External Approach (ICD-10-PCS; principal; 2018-11-03)
DX: R55 Syncope and collapse (principal); S01.81XA Laceration without foreign body of other part of head, initial encounter; W18.39XA Other fall on same level, initial encounter; Y92.512 Supermarket, store or market as the place of occurrence of the external cause; Y93.89 Activity, other specified; F03.90 Unspecified dementia, unspecified severity, without behavioral disturbance, psychotic disturbance, mood disturbance, and anxiety; I48.0 Paroxysmal atrial fibrillation; R62.7 Adult failure to thrive; F32.9 Major depressive disorder, single episode, unspecified; E03.9 Hypothyroidism, unspecified; J96.11 Chronic respiratory failure with hypoxia; Z86.711 Personal history of pulmonary embolism
CPT/HCPCS: 12013; 70450; 71046; 72125; 93005; 97161; 97166; 99285; G0378; 84484-ER

== ENCOUNTER 2018-11-22 05:40 | Inpatient (IN) | payer OTHER ==
--- NOTE | 2018-11-22 05:54 | EDPHY ---
H & P Stated Complaint: Chest Pain Source: Patient - Personal History Current Tetanus/Diphtheria Vaccine: Yes Current Tetanus Diphtheria and Acellular Pertussis (TDAP): Yes - Medical/Surgical History Hx Asthma: No Hx Chronic Respiratory Disease: No Hx Diabetes: No Hx Cardiac Disease: No Hx Renal Disease: No Hx Cirrhosis: No Hx Alcoholism: Yes Hx HIV/AIDS: No Hx Splenectomy or Spleen Trauma: No Other PMH: Dementia, HTN, HYPOTHYROID, PE, GERD, chronic pain with narcotic dependence (now done), alcohol abuse. cataract surgery, retina surgery, appendectomy, ankle fusion, right knee surgery - Social History Smoking Status: Never smoked <Dashawn Morillo - Last Filed: 11/22/18 08:13> <Josue Mena - Last Filed: 11/22/18 08:36> Time Seen by Provider: 11/22/18 05:54 HPI/ROS: HPI CHIEF COMPLAINT: Chest pain, right arm pain HISTORY OF PRESENT ILLNESS: This is a 78-year-old female, she has a history of severe dementia, she presents emergency room by private vehicle with her for chest pain. At 4:30 a.m. In the morning or approximately an hour and half ago she complained of substernal chest pain radiating to her right shoulder right arm. She asked her to take her to the emergency room. She now arrives to the emergency room and tells me she still has chest pain. Substernal. However nonradiating. She cannot remember when this started. She also cannot tell me what it feels like. History review of systems somewhat limited due to her underlying mental state dementia. Past Medical History: Significant medical history for dementia severe, AFib, proximal, failure to thrive, PE, GERD, hypertension, syncope Past Surgical History: No recent surgery Social History: Denies drugs alcohol tobacco. at bedside. Family History: Noncontributory ROS REVIEW OF SYSTEMS: 10 Systems were reviewed and negative with the exception of the elements mentioned in the history of present illness. Exam Constitutional triage nursing summary reviewed, vital signs reviewed, awake/ alert. Patient sat 86%. Eyes normal conjunctivae and sclera, EOMI, PERRLA. HENT normal inspection, atraumatic, moist mucus membranes, no epistaxis, neck supple/ no meningismus, no raccoon eyes. Respiratory clear to auscultation bilaterally, normal breath sounds, no respiratory distress, no wheezing. Cardiovascular rate normal, regular rhythm, no murmur, no edema, distal pulses normal. Gastrointestinal soft, non-tender, no rebound, no guarding, normal bowel sounds, no distension, no pulsatile mass. Genitourinary no CVA tenderness. Musculoskeletal no midline vertebral tenderness, full range of motion, no calf swelling, no tenderness of extremities, no meningismus, good pulses, neurovascularly intact. Skin pink, warm, & dry, no rash, skin atraumatic. Neurologic awake, alert and oriented x 3, AAOx3, moves all 4 extremities equally, motor intact, sensory intact, CN II-XII intact, normal cerebellar, normal vision, normal speech. Psychiatric normal mood/affect. Heme/Lymph/Immune no lymphadenopathy. Differential Diagnosis: Differential diagnosis includes but is not limited to: ACS, atypical chest pain, pneumothorax, pneumonia, pulmonary embolism, aortic dissection, congestive heart failure, tumor, musculoskeletal pain, esophageal pain, GERD, peptic ulcer disease, pancreatitis Medical Decision Making: Plan for this patient IV establishment IV fluid bolus , chest x-ray, EKG, troponin, rule out acute coronary syndrome basic labs, aspirin. Re-evaluation: EKG interpretation by me on record in [employer] system. Impression time of EKG 5:57 a.m., sinus rhythm rate of 68, there are T-wave abnormality seen in V1 V2 V3 similar to previous EKG dated 11/03/2018, additionally T-wave abnormality lead 3. T-wave abnormalities V4 V5 V6 lateral. Similar to previous EKG. No ST elevation. Troponin 0.13. Aspirin ordered. ED x-ray chest one view negative for acute cardiopulmonary disease. EKG interpretation by me on record in [employer] system. Impression time of EKG 7:20 a.m. Sinus rhythm rate of 54, no ST elevation, Q-waves noted V1 V2 V3 with T-wave abnormalities. T-waves are upright in V4 V5 V6 when they were down before. 7:31 a.m. patient is chest pain-free. Denies any chest pain. Full-dose aspirin as been given. Admit to the hospitalist service. Consult Cardiology. Patient did have a elevated D-dimer at 5. Patient's troponin positive at 0.13. EKG has some T-wave abnormalities. Given the elevated D-dimer and hypoxia plan for CT angiogram of the chest. 7:35 a.m. I did consult Cardiology for elevated troponin and chest pain. Dr. Madrid I will consult the hospitalist service for admission. Patient accepted by hospitalist service. Dr. Dela Cruz. CT A pending. Dr. Mena to follow up CTA (Dashawn Morillo) Constitutional: Initial Vital Signs Temperature (C) 36.7 C 11/22/18 05:45 Heart Rate 76 11/22/18 05:45 Respiratory Rate 18 11/22/18 05:45 Blood Pressure 130/89 H 11/22/18 05:45 O2 Sat (%) 86 L 11/22/18 05:45 O2 Delivery Mode Nasal Cannula O2 (L/minute) 2 Allergies/Adverse Reactions: lanolin Allergy (Severe, Verified 11/22/18 05:44) Rash bacitracin Allergy (Verified 11/22/18 05:44) codeine [Codeine] Allergy (Verified 11/22/18 05:44) neomycin Allergy (Verified 11/22/18 05:44) polymyxin B Allergy (Verified 11/22/18 05:44) ADHESIVES Allergy (Uncoded 11/22/18 05:44) Home Medications: Medication Instructions Recorded Aspirin [Aspirin 81mg (*)] 81 mg PO DAILY 06/26/18 Levothyroxine [Synthroid 50 mcg 50 mcg PO DAILY06 06/26/18 (*)] Cholecalciferol Vit D3 [Vitamin D3 2,000 units PO DAILY 06/27/18 2000 units tab (OTC)] Cyanocobalamin [Vitamin B12 (*)] 500 mcg PO DAILY 06/27/18 [place]-3 Fatty Acids [Fish Oil 1000 1,000 mg PO DAILY 06/27/18 mg (*)] Mirtazapine 7.5 mg PO DAILY 11/03/18 Sertraline HCl [Zoloft 50mg (*)] 50 mg PO DAILY 11/03/18 Medical Decision Making <Dashawn Morillo - Last Filed: 11/22/18 08:13> - Diagnostics Imaging: Discussed imaging studies w/ clinical haematologist Radiologist, I viewed and interpreted images myself <Josue Mena - Last Filed: 11/22/18 08:36> - Diagnostics Imaging Results: Imaging Impressions Chest X-Ray 11/22/18 06:04 Impression: Basilar atelectasis with no definite acute findings. The patient subsequently underwent CT chest. ED Course/Re-evaluation: 07: I assumed care of this patient at shift change from Dr. Morillo. 0827: I spoke with Dr. Crowley, radiologist, who reports that the patient has subacute and acute PE's. I have given her low molecular weight heparin and will page the hospitalist for an update. 0834: I consulted with the hospitalist service regarding this patient. The patient is a possible TPA candidate as she has an elevated troponin and significant clot burden in the lungs. Patient has been transferred to the floor at this time. (Josue Mena) - Data Points Laboratory Results: Laboratory Results 11/22/18 06:51 11/22/18 06:00 11/22/18 11/22/18 11/22/18 06:51 06:51 06:03 WBC 6.52 10^3/uL 10^3/uL (3.80-9.50) RBC 4.52 10^6/uL 10^6/uL (4.18-5.33) Hgb 12.9 g/dL g/dL (12.6-16.3) Hct 41.3 % % (38.0-47.0) MCV 91.4 fL fL (81.5-99.8) MCH 28.5 pg pg (27.9-34.1) MCHC 31.2 g/dL L g/dL (32.4-36.7) RDW 14.9 % % (11.5-15.2) Plt Count 207 10^3/uL 10^3/uL (150-400) MPV 9.2 fL fL (8.7-11.7) Neut % (Auto) 61.5 % % (39.3-74.2) Lymph % (Auto) 23.3 % % (15.0-45.0) Love % (Auto) 10.3 % % (4.5-13.0) Eos % (Auto) 4.1 % % (0.6-7.6) Baso % (Auto) 0.5 % % (0.3-1.7) Nucleat RBC Rel Count 0.0 % % (0.0-0.2) Absolute Neuts (auto) 4.01 10^3/uL 10^3/uL (1.70-6.50) Absolute Lymphs (auto) 1.52 10^3/uL 10^3/uL (1.00-3.00) Absolute Monos (auto) 0.67 10^3/uL 10^3/uL (0.30-0.80) Absolute Eos (auto) 0.27 10^3/uL 10^3/uL (0.03-0.40) Absolute Basos (auto) 0.03 10^3/uL 10^3/uL (0.02-0.10) Absolute Nucleated RBC 0.00 10^3/uL 10^3/uL (0-0.01) Immature Gran % 0.3 % % (0.0-1.1) Immature Gran # 0.02 10^3/uL 10^3/uL (0.00-0.10) PT 12.6 SEC SEC (12.0-15.0) INR 0.98 (0.83-1.16) APTT 23.8 SEC SEC (23.0-38.0) D-Dimer 5.20 ug/mLFEU H ug/mLFEU (0.00-0.50) Sodium Potassium Chloride Carbon Dioxide Anion Gap BUN Creatinine Estimated GFR Glucose Calcium Magnesium Total Bilirubin Conjugated Bilirubin Unconjugated Bilirubin AST ALT Alkaline Phosphatase POC Troponin I 0.13 ng/mL H ng/mL (0.00-0.08) NT-Pro-B Natriuret Pep Total Protein Albumin Lipase 11/22/18 11/22/18 11/22/18 06:00 06:00 06:00 WBC REJ RBC REJ Hgb REJ Hct REJ MCV REJ MCH REJ MCHC REJ RDW REJ Plt Count REJ MPV REJ Neut % (Auto) REJ Lymph % (Auto) REJ Love % (Auto) REJ Eos % (Auto) REJ Baso % (Auto) REJ Nucleat RBC Rel Count REJ Absolute Neuts (auto) REJ Absolute Lymphs (auto) REJ Absolute Monos (auto) REJ Absolute Eos (auto) REJ Absolute Basos (auto) REJ Absolute Nucleated RBC REJ Immature Gran % REJ Immature Gran # REJ PT REJ INR REJ APTT REJ D-Dimer REJ Sodium 141 mEq/L mEq/L (135-145) Potassium 4.5 mEq/L mEq/L (3.5-5.2) Chloride 106 mEq/L mEq/L (97-110) Carbon Dioxide 23 mEq/l mEq/l (22-31) Anion Gap 12 mEq/L mEq/L (6-14) BUN 14 mg/dL mg/dL (7-23) Creatinine 0.8 mg/dL mg/dL (0.6-1.0) Estimated GFR > 60 Glucose 99 mg/dL mg/dL (70-100) Calcium 9.4 mg/dL mg/dL (8.5-10.4) Magnesium 1.9 mg/dL mg/dL (1.6-2.3) Total Bilirubin 0.8 mg/dL mg/dL (0.1-1.4) Conjugated Bilirubin 0.2 mg/dL mg/dL (0.0-0.5) Unconjugated Bilirubin 0.6 mg/dL mg/dL (0.0-1.1) AST 24 IU/L IU/L (14-46) ALT 19 IU/L IU/L (9-52) Alkaline Phosphatase 92 IU/L IU/L (38-126) POC Troponin I NT-Pro-B Natriuret Pep 119 pg/mL pg/mL (0-450) Total Protein 7.5 g/dL g/dL (6.3-8.2) Albumin 4.1 g/dL g/dL (3.5-5.0) Lipase 288 IU/L IU/L (23-300) Medications Given: Discontinued Medications Aspirin Buffered (Aspirin Ec) 325 mg PO EDNOW ONE Stop: 11/22/18 06:28 Last Admin: 11/22/18 06:30 Dose: 325 mg Sodium Chloride (Ns) 1,000 mls @ 0 mls/hr IV EDNOW ONE; Wide Open PRN Reason: Protocol Stop: 11/22/18 06:05 Last Admin: 11/22/18 06:09 Dose: 1,000 mls Point of Care Test Results: Chemistry 11/22/18 06:03 POC Troponin I 0.13 ng/mL H ng/mL (0.00-0.08) Departure <Dashawn Morillo - Last Filed: 11/22/18 08:13> <Josue Mena - Last Filed: 11/22/18 08:36> - Departure Disposition: [facility] Inpatient Acute Clinical Impression: Hypoxia, Elevated troponin Chest pain Qualifiers: Chest pain type: other chest pain Qualified Code(s): R07.89 - Other chest pain ; R07.8 - Other chest pain Pulmonary embolism Qualifiers: Pulmonary embolism type: other Chronicity: unspecified Acute cor pulmonale presence: with acute cor pulmonale Qualified Code(s): I26.09 - Other pulmonary embolism with acute cor pulmonale Condition: Fair
[2018-11-22] MEDS ORDERED: NS 1,000 ML IV ONE (06:04)
[2018-11-22] MEDS ORDERED: ASPIRIN EC 325 MG TAB PO ONE (06:27)
[2018-11-22 07:11] LABS: PLATELET COUNT 207 10^3/uL (150-400)
[2018-11-22 07:21] LABS: INR 0.98 (0.83-1.16); PROTIME(PATIENT) 12.6 SEC (12.0-15.0)
[2018-11-22] MEDS ORDERED: HEPARIN/DEXTROSE 500 ML IV ONE (07:34)
[2018-11-22] MEDS ORDERED: HEPARIN 10,000 UNIT/10 ML MDV (1,000 UNIT/ML) IVP ONE (07:34)
[2018-11-22] MEDS ORDERED: IOPAMIDOL (ISOVUE 370) 100 ML BTL IV ONE (07:36)
--- NOTE | 2018-11-22 08:23 | CPEKG ---
Test Reason : OPEN Blood Pressure : / mmHG Vent. Rate : 068 BPM Atrial Rate : 068 BPM P-R Int : 153 ms QRS Dur : 112 ms QT Int : 471 ms P-R-T Axes : 019 -26 -04 degrees QTc Int : 502 ms Sinus rhythm Prolonged QT interval Confirmed by Dashawn Morillo ([id number]) on 11/22/2018 8:23:07 AM Referred By: Dashawn Morillo Confirmed By:Dashawn Morillo
--- NOTE | 2018-11-22 08:23 | CPEKG ---
Test Reason : OPEN Blood Pressure : / mmHG Vent. Rate : 054 BPM Atrial Rate : 054 BPM P-R Int : 173 ms QRS Dur : 087 ms QT Int : 466 ms P-R-T Axes : 014 -19 -02 degrees QTc Int : 442 ms Sinus rhythm Borderline left axis deviation Anteroseptal infarct, age indeterminate Confirmed by Dashawn Morillo ([id number]) on 11/22/2018 8:23:04 AM Referred By: Dashawn Morillo Confirmed By:Dashawn Morillo
[2018-11-22] MEDS: ENOXAPARIN 80 MG/0.8 ML SYR SC SCH ×2 (08:45→20:58)
[2018-11-22] MEDS ORDERED: IPRATROPIUM/ALBUTEROL 3 ML DEYVIAL IH PRN (09:09)
[2018-11-22] MEDS ORDERED: ONDANSETRON DISINTEGRATING 4 MG TAB PO PRN (09:09)
[2018-11-22] MEDS ORDERED: OXYCODONE/APAP 5/325 TAB PO PRN (09:09)
[2018-11-22] MEDS ORDERED: ONDANSETRON 4 MG/2 ML VIAL IVP PRN (09:09)
[2018-11-22] MEDS ORDERED: LORazepam 0.5 MG TAB PO PRN (09:09)
[2018-11-22] MEDS ORDERED: ACETAMINOPHEN 325 MG TAB PO PRN (09:09)
--- NOTE | 2018-11-22 10:20 | PDCARCONS ---
Cardiology Consult Reason for Consult: elevated troponin Chief Complaint: chest pains Requesting Physician: ER/Hospitalist team History of Present Illness: Patient is a 78 y/o female with severe dementia, HTN, hypothyroidism, pulmonary emboli, pAF (not on anticoagulation given degree of dementia and falls), and GERD, who presents to the ER at [facility] with complaints of chest discomfort. Discomfort was reportedly a "pain". Symptoms began at 0430 this morning. Ultimately, the patient's brought her to the ER for evaluation. In the ER, given the symptoms reported, ECG and cardiac labs were obtained. No dynamic ST/T wave changes were noted (sinus bradycardia with non specific ST/T wave changes). Troponin with mild elevation noted (0.13). D-dimer was elevated to >5, and CT to rule out pulmonary emboli was performed. This testing with both segmental and subsegmental emboli noted. At present, the patient is resting comfortably. has gone home. Patient 's ability to communicate is fair, but dementia provides a significant limitation. At this point in time, the patient is a full COR. 12 point review of systems was unremarkable, but, as stated above, there is a significant limitation to the information obtained from the patient. History Information - Allergies/Home Medication List Allergies/Adverse Reactions: lanolin Allergy (Severe, Verified 11/22/18 05:44) Rash bacitracin Allergy (Verified 11/22/18 05:44) codeine [Codeine] Allergy (Verified 11/22/18 05:44) neomycin Allergy (Verified 11/22/18 05:44) polymyxin B Allergy (Verified 11/22/18 05:44) ADHESIVES Allergy (Uncoded 11/22/18 05:44) Home Medications: Aspirin [Aspirin 81mg (*)] 81 mg PO DAILY@06/26/18 [Last Taken 11/03/18] Levothyroxine [Synthroid 50 mcg (*)] 50 mcg PO DAILY06/26/18 [Last Taken ] Cholecalciferol Vit D3 [Vitamin D3 2000 units tab (OTC)] 2,000 units PO DAILY@ 06/27/18 [Last Taken 11/03/18] Cyanocobalamin [Vitamin B12 (*)] 500 mcg PO DAILY@06/27/18 [Last Taken ] [place]-3 Fatty Acids [Fish Oil 1000 mg (*)] 1,000 mg PO DAILY 06/27/18 [Last Taken 11/03/18] Mirtazapine 7.5 mg PO DAILY@12 11/03/18 [Last Taken 11/03/18] Sertraline HCl [Zoloft 50mg (*)] 50 mg PO DAILY 11/03/18 [Last Taken 11/03/18] I have personally reviewed and updated: family history, medical history, social history, surgical history Past Medical History: - Past Medical History atrial fibrillation, dementia, GERD, hypertension, pulmonary embolism Additional medical history: hypothyroidism - Surgical History Reports: no pertinent surgical hx - Family History Positive for: non-pertinent - Social History Smoking Status: Never smoked Alcohol Use: None Drug Use: None Cardiac History - Cardiac History Cardiac Risk Factors: hypertension (>140/90), age > 65 Timing/Duration: Hours Severity: moderate Severity Scale: 6 Location: shoulder Activities at Onset: none Modifying Factors: improves with: oxygen, rest Associated Symptoms: chest pain Physical Exam Physical Exam: Temp Pulse Resp BP Pulse Ox 36.6 C 49 L 16 151/76 H 92 11/22/18 09:14 11/22/18 09:14 11/22/18 09:14 11/22/18 09:14 11/22/18 09:14 O2 (L/minute) 4 Constitutional: no apparent distress, appears nourished, not in pain Eyes: PERRL, EOMI Ears, Nose, Mouth, Throat: moist mucous membranes, hearing normal, ears appear normal Cardiovascular: regular rate and rhythym, no murmur, rub, or gallop, pulses symmetric bilaterally, No JVD Peripheral Pulses: 2+: dorsalis-pedis (R), dorsalis-pedis (L) Respiratory: no respiratory distress, no rales or rhonchi, clear to auscultation Gastrointestinal: normoactive bowel sounds Skin: warm, No rash Musculoskeletal: full muscle strength, no muscle tenderness Neurologic: sensation intact bilaterally, CN II-XII Intact Psychiatric: encephalopathic, depressed, flat affect, poor memory Lab and Imaging 11/22/18 06:51 11/22/18 06:00 WBC 6.52 10^3/uL (3.80-9.50) 11/22/18 06:51 RBC 4.52 10^6/uL (4.18-5.33) 11/22/18 06:51 Hgb 12.9 g/dL (12.6-16.3) 11/22/18 06:51 Hct 41.3 % (38.0-47.0) 11/22/18 06:51 MCV 91.4 fL (81.5-99.8) 11/22/18 06:51 MCH 28.5 pg (27.9-34.1) 11/22/18 06:51 MCHC 31.2 g/dL (32.4-36.7) L 11/22/18 06:51 RDW 14.9 % (11.5-15.2) 11/22/18 06:51 Plt Count 207 10^3/uL (150-400) 11/22/18 06:51 MPV 9.2 fL (8.7-11.7) 11/22/18 06:51 Neut % (Auto) 61.5 % (39.3-74.2) 11/22/18 06:51 Lymph % (Auto) 23.3 % (15.0-45.0) 11/22/18 06:51 [place] % (Auto) 10.3 % (4.5-13.0) 11/22/18 06:51 Eos % (Auto) 4.1 % (0.6-7.6) 11/22/18 06:51 Baso % (Auto) 0.5 % (0.3-1.7) 11/22/18 06:51 Nucleat RBC Rel Count 0.0 % (0.0-0.2) 11/22/18 06:51 Absolute Neuts (auto) 4.01 10^3/uL (1.70-6.50) 11/22/18 06:51 Absolute Lymphs (auto) 1.52 10^3/uL (1.00-3.00) 11/22/18 06:51 Absolute Monos (auto) 0.67 10^3/uL (0.30-0.80) 11/22/18 06:51 Absolute Eos (auto) 0.27 10^3/uL (0.03-0.40) 11/22/18 06:51 Absolute Basos (auto) 0.03 10^3/uL (0.02-0.10) 11/22/18 06:51 Absolute Nucleated RBC 0.00 10^3/uL (0-0.01) 11/22/18 06:51 Immature Gran % 0.3 % (0.0-1.1) 11/22/18 06:51 Immature Gran # 0.02 10^3/uL (0.00-0.10) 11/22/18 06:51 PT 12.6 SEC (12.0-15.0) 11/22/18 06:51 INR 0.98 (0.83-1.16) 11/22/18 06:51 APTT 23.8 SEC (23.0-38.0) 11/22/18 06:51 D-Dimer 5.20 ug/mLFEU (0.00-0.50) H 11/22/18 06:51 Sodium 141 mEq/L (135-145) 11/22/18 06:00 Potassium 4.5 mEq/L (3.5-5.2) 11/22/18 06:00 Chloride 106 mEq/L (97-110) 11/22/18 06:00 Carbon Dioxide 23 mEq/l (22-31) 11/22/18 06:00 Anion Gap 12 mEq/L (6-14) 11/22/18 06:00 BUN 14 mg/dL (7-23) 11/22/18 06:00 Creatinine 0.8 mg/dL (0.6-1.0) 11/22/18 06:00 Estimated GFR > 60 11/22/18 06:00 Glucose 99 mg/dL (70-100) 11/22/18 06:00 Calcium 9.4 mg/dL (8.5-10.4) 11/22/18 06:00 Magnesium 1.9 mg/dL (1.6-2.3) 11/22/18 06:00 Total Bilirubin 0.8 mg/dL (0.1-1.4) 11/22/18 06:00 Conjugated Bilirubin 0.2 mg/dL (0.0-0.5) 11/22/18 06:00 Unconjugated Bilirubin 0.6 mg/dL (0.0-1.1) 11/22/18 06:00 AST 24 IU/L (14-46) 05/04/19 06:00 ALT 19 IU/L (9-52) 11/22/18 06:00 Alkaline Phosphatase 92 IU/L (38-126) 11/22/18 06:00 POC Troponin I 0.00 ng/mL (0.00-0.08) 11/22/18 07:41 NT-Pro-B Natriuret Pep 119 pg/mL (0-450) 11/22/18 06:00 Total Protein 7.5 g/dL (6.3-8.2) 11/22/18 06:00 Albumin 4.1 g/dL (3.5-5.0) 11/22/18 06:00 Lipase 288 IU/L (23-300) 11/22/18 06:00 Visualized and Interpreted Chest x-ray results: Yes Chest X-ray Interpretation: normal heart size, infiltrate (atelectasis) EKG Interpretation: Positive for: normal sinsus rhythm, NS ST wave abnormalities Telemetry: normal sinus rhythm Echocardiogram: not performed A/P Assessment: Patient is a 78 y/o female with severe dementia, HTN, pAF (history, not on anticoagulation for this diagnosis given dementia and fall risk), hypothyroidism , history of PE, and GERD, who presented to [facility] ER via private transport with complaints of chest pains. ECG without dynamic ST/T wave changes noted. Minor elevation in troponin was noted, and elevation of d-dimer. Given the d-dimer ( and history of PE), CT was performed, and this revealed both segmental and subsegmental pulmonary emboli. Patient was given a dose of lovenox in the ER and sent to the PCU. On the floor, the patient is without cardiovascular complaints. Memory is very poor. has left the hospital to go home. Plan: Cardiology recommends conversations with patient and about fpc plans. Would continue therapy on lovenox for the time being, but concerns about coumadin therapy given level of dementia and fall history. Palliative care consult has been requested for further discussions about home care/ therapy. Would maintain therapy on ASA. Would continue synthroid for history of hypothyroidism Cardiology can follow with this patient over her hospital stay Would trend the troponin (am assessment)
[2018-11-22] MEDS: ASPIRIN 81 MG CHEWABLE TAB PO SCH (11:02)
--- NOTE | 2018-11-22 15:22 | ECHO ---
[email or web address] [address] Main: [phone] Echocardiography Examination Transthoracic Name: WALKER SAEED MR#: [id number] Study Date: 11/22/2018 Study Time: 09:31 AM Date of : 1940 Age: 78 year(s) Height: 170.2 cm (67 in.) Weight: 74.84 kg (165 lb.) BSA: 1.86 m2 Gender: Female Examination: Echo Contrast: Image Quality: Adequate Rhythm: Normal sinus rhythm Heart Rate: 54 bpm BP: 151 mmHg/76 mmHg Indication: PE, CP Procedure Staff Referring Physician: Director Of Clinical Education: Ashlie Maldonado [facility] Reading Physician: Salinas Madrid MD Requesting Provider: Ordering Physician: Jinny Dela Cruz Indication: PE, CP Measurements Chambers AV/MV Label Value Normal Value Label Value Normal Value LVOT Vmax 0.85 m/s (0.7m/s - 1.1m/s) AV PGmax 8 mmHg LVOTd 2 cm (1.8cm - 2cm) AV Vmax 1.38 m/s LVDd, 2D 4.7 cm (3.9cm - 5.3cm) LEONORA (Vmax) 1.9 cm2 LVDs, 2D 3.2 cm (2.1cm - 4cm) MV E Vmax 0.64 m/s IVSd, 2D 1.1 cm (0.6cm - 1.1cm) MV A Vmax 0.64 m/s LVPWd, 2D 0.9 cm MV E/A 1 LVEF, BP 68 % (55% - 70%) MV E/E' lateral 7.3 LVEF, 2D 60 % (54% - 74%) MV E/E' septal 12.3 (0.45 - 1.25) RVDd, 2D 3.5 cm (1.9cm - 3.8cm) MV DT 232 ms TAPSE 1.9 cm MV E' septal 0.05 m/s LA Volume, BP 54 ml (22ml - 52ml) MV E' lateral 0.09 m/s LADs, 2D 3.5 cm (2.7cm - 3.8cm) MV E/E' mean 9.14 LAESV index, BP 29 ml/m2 MV E' mean 0.07 m/s Additional Vessels TV/PV Label Value Normal Value Label Value Normal Value AoAsc 3.6 cm RA Pressure 5 mmHg AoRoot, 2D 3.3 cm (1.4cm - 2.6cm) RVSP 31 mmHg TR Pmax 26 mmHg TR Vmax 2.55 m/s Patient: WALKER SAEED Study Date: 11/22/2018 Page 1 of 3 09:31 AM PV PGmax 3 mmHg PV Vmax, Caliper 0.82 m/s (0.6m/s - 0.9m/s) Conclusions (1) Left ventricular systolic ejection fraction was normal (68%) - normal wall motion (2) Normal RV size and function (3) Normal atrial dimensions (4) Mild MR with mildly thickened leaflets (5) Trileaflet aortic valve without sclerosis or insufficiency (6) Mild TR - RVSP was 31 mm Hg (7) Normal aortic dimensions (8) No pericardial effusion Findings Left Ventricle: Left ventricle is normal in size. Normal global systolic left ventricular function. EF evaluated by EF (biplane Fierro's). The ejection fraction, measured by Simpsons method, is 68 %. EF range is estimated at 65 % - 70 %. Left ventricle wall thickness is normal. There are no regional wall motion abnormalities. Left ventricular diastolic function parameters are normal. Right Ventricle: Normal size right ventricle. Right ventricular systolic function is normal. Left Atrium: The left atrium is normal in size. IAS: Normal appearing atrial septum. Right Atrium: The right atrium is normal in size. Mitral Valve: Mitral valve is normal in appearance. Mild mitral regurgitation. No mitral valve stenosis. There is mild mitral thickening. Aortic Valve: Aortic leaflets exhibit normal cuspal separation. No aortic valve regurgitation. There is no aortic stenosis. Tricuspid Valve: Tricuspid valve leaflets are normal in appearance and function. Mild tricuspid regurgitation. No tricuspid valve stenosis. Right Ventricular systolic pressure is measured at 31 mmHg. Pulmonary artery pressure is upper limits of normal. Pulmonic Valve: Pulmonic leaflets exhibit normal cuspal separation. No pulmonic valve regurgitation is evident. There is no pulmonic valve stenosis. Aorta: The aorta is normal. The aortic root size in 2D measures 3.3 cm. The ascending aorta measures 3.6 cm. Aorta Measurements AoRoot, 2D is 3.3 cm. IVC: The inferior vena cava is normal in size and course. Pericardium: A pericardial fat pad is present. No pericardial effusion. No pleural effusion present. Exam Details Procedure Ordered: Echo Procedure Status: Routine study Image Quality: Adequate Facility Location: Cardiac Echo 1 Patient: WALKER SAEED Study Date: 11/22/2018 Page 2 of 3 09:31 AM (No Signature Object) Patient: WALKER SAEED Study Date: 11/22/2018 Page 3 of 3 09:31 AM [id number]
--- NOTE | 2018-11-22 15:55 | ASMTCMCOM ---
CM Note CM Note Notes: 11/22/2018 Case Management Note Pt admitted with multiple PE in the setting of advanced dementia. Discussed in rounds. Pt has frequent hospital admits and/or visits to ED with 13 total ED visits or admissions since 2017. Please see case management d/c note from Jul 04, 2018 for complete list of services case management has attempted to coordinate with family. Phone call to [facility]. Pt is open with [facility]. [facility]retchen to fax [facility] MDPOA and MOST form; provided fax number. MDPOA is Edwar with second POA listed as daughter Alyx. Stepdathea Lelia is geriatric RN with [facility]. Gretchen stated concerns if is decisional and able to make safe decisions for pt. Gretchen confirmed pt and live in a situation that would be considered hoarding driven by Edwar. [facility] SW to have family meeting with Edwar and daughter Alyx tomorrow to assess situation and attempt to address code status. Case Management requested phone call to update. Left vm with Edwar Cartwright with [facility] to confirm number of hours of support. Left with karmen Wisdom [phone] requesting call back. Faxed updates to [facility]. Discussed w/ hospitalist, cardiology and RN. Case Management d/c poc: to be determined. Case Management to follow. Date Signed: 11/22/2018 03:54 PM Electronically Signed By:Kellen Amado RN
--- NOTE | 2018-11-22 16:38 | PDGENHP ---
History and Physical - Chief Complaint chest pain - History of Present Illness Pt is a 78yo F w/ severe dementia and recurrent hospital visits who presented this morning with chest pain. She woke up from her sleep and urged her to take her to the hospital. In the ED, testing revealed bilateral PE. She has had PEs in the past. The patient was started on Lovenox and admitted to the hospital. During the patient interview, the patient is unable to provide any history. She says she feels depressed. When I called her Allison, she said that is not her name and that her name is Allison. Currently she denies chest pain or shortness of breath. All of the history was obtained through medical records. History Information - Allergies/Home Medication List Allergies/Adverse Reactions: lanolin Allergy (Severe, Verified 11/22/18 05:44) Rash bacitracin Allergy (Verified 11/22/18 05:44) codeine [Codeine] Allergy (Verified 11/22/18 05:44) neomycin Allergy (Verified 11/22/18 05:44) polymyxin B Allergy (Verified 11/22/18 05:44) ADHESIVES Allergy (Uncoded 11/22/18 05:44) Home Medications: Aspirin [Aspirin 81mg (*)] 81 mg PO DAILY@12 06/26/18 [Last Taken 11/03/18] Levothyroxine [Synthroid 50 mcg (*)] 50 mcg PO DAILY06 06/26/18 [Last Taken ] Cholecalciferol Vit D3 [Vitamin D3 2000 units tab (OTC)] 2,000 units PO DAILY@ 06/27/18 [Last Taken 11/03/18] Cyanocobalamin [Vitamin B12 (*)] 500 mcg PO DAILY@06/27/18 [Last Taken ] [place]-3 Fatty Acids [Fish Oil 1000 mg (*)] 1,000 mg PO DAILY 06/27/18 [Last Taken 11/03/18] Mirtazapine 7.5 mg PO DAILY@11/03/18 [Last Taken 11/03/18] Sertraline HCl [Zoloft 50mg (*)] 50 mg PO DAILY 11/03/18 [Last Taken 11/03/18] I have personally reviewed and updated: family history, medical history, social history, surgical history - Past Medical History atrial fibrillation, dementia, GERD, hypertension, pulmonary embolism Additional medical history: hypothyroidism - Surgical History Reports: no pertinent surgical hx - Family History Positive for: non-pertinent - Social History Smoking Status: Never smoked Alcohol Use: None Drug Use: None Additional social history: , lives with at home. Review of Systems Review of Systems: unable to obtain 2/2 severe dementia Physical Exam Physical Exam: Temp Pulse Resp BP Pulse Ox 36.6 C 49 L 16 151/76 H 92 11/22/18 09:14 11/22/18 09:14 11/22/18 09:14 11/22/18 09:14 11/22/18 09:14 O2 (L/minute) 4 Constitutional: no apparent distress, appears nourished Eyes: EOMI, No scleral injection Ears, Nose, Mouth, Throat: moist mucous membranes, hearing normal Cardiovascular: regular rate and rhythym, no murmur, rub, or gallop Respiratory: no respiratory distress, no rales or rhonchi, clear to auscultation Gastrointestinal: normoactive bowel sounds, No distension Genitourinary: No meek in urethra Skin: warm, normal color Musculoskeletal: other (normal muscle tone/bulk), No asymmetric calves Neurologic: CN II-XII Intact, No AAOx3 Psychiatric: poor insight, poor judgement, poor memory, No thought process linear, No anxious Lab Data & Imaging Review 11/22/18 06:51 11/22/18 06:00 WBC 6.52 10^3/uL (3.80-9.50) 11/22/18 06:51 RBC 4.52 10^6/uL (4.18-5.33) 11/22/18 06:51 Hgb 12.9 g/dL (12.6-16.3) 11/22/18 06:51 Hct 41.3 % (38.0-47.0) 11/22/18 06:51 MCV 91.4 fL (81.5-99.8) 11/22/18 06:51 MCH 28.5 pg (27.9-34.1) 11/22/18 06:51 MCHC 31.2 g/dL (32.4-36.7) L 11/22/18 06:51 RDW 14.9 % (11.5-15.2) 11/22/18 06:51 Plt Count 207 10^3/uL (150-400) 11/22/18 06:51 MPV 9.2 fL (8.7-11.7) 11/22/18 06:51 Neut % (Auto) 61.5 % (39.3-74.2) 11/22/18 06:51 Lymph % (Auto) 23.3 % (15.0-45.0) 11/22/18 06:51 [place] % (Auto) 10.3 % (4.5-13.0) 11/22/18 06:51 Eos % (Auto) 4.1 % (0.6-7.6) 11/22/18 06:51 Baso % (Auto) 0.5 % (0.3-1.7) 11/22/18 06:51 Nucleat RBC Rel Count 0.0 % (0.0-0.2) 11/22/18 06:51 Absolute Neuts (auto) 4.01 10^3/uL (1.70-6.50) 11/22/18 06:51 Absolute Lymphs (auto) 1.52 10^3/uL (1.00-3.00) 11/22/18 06:51 Absolute Monos (auto) 0.67 10^3/uL (0.30-0.80) 11/22/18 06:51 Absolute Eos (auto) 0.27 10^3/uL (0.03-0.40) 11/22/18 06:51 Absolute Basos (auto) 0.03 10^3/uL (0.02-0.10) 11/22/18 06:51 Absolute Nucleated RBC 0.00 10^3/uL (0-0.01) 11/22/18 06:51 Immature Gran % 0.3 % (0.0-1.1) 11/22/18 06:51 Immature Gran # 0.02 10^3/uL (0.00-0.10) 11/22/18 06:51 PT 12.6 SEC (12.0-15.0) 11/22/18 06:51 INR 0.98 (0.83-1.16) 11/22/18 06:51 APTT 23.8 SEC (23.0-38.0) 11/22/18 06:51 D-Dimer 5.20 ug/mLFEU (0.00-0.50) H 11/22/18 06:51 Sodium 141 mEq/L (135-145) 11/22/18 06:00 Potassium 4.5 mEq/L (3.5-5.2) 11/22/18 06:00 Chloride 106 mEq/L (97-110) 11/22/18 06:00 Carbon Dioxide 23 mEq/l (22-31) 11/22/18 06:00 Anion Gap 12 mEq/L (6-14) 11/22/18 06:00 BUN 14 mg/dL (7-23) 11/22/18 06:00 Creatinine 0.8 mg/dL (0.6-1.0) 11/22/18 06:00 Estimated GFR > 60 11/22/18 06:00 Glucose 99 mg/dL (70-100) 11/22/18 06:00 Calcium 9.4 mg/dL (8.5-10.4) 11/22/18 06:00 Magnesium 1.9 mg/dL (1.6-2.3) 11/22/18 06:00 Total Bilirubin 0.8 mg/dL (0.1-1.4) 11/22/18 06:00 Conjugated Bilirubin 0.2 mg/dL (0.0-0.5) 11/22/18 06:00 Unconjugated Bilirubin 0.6 mg/dL (0.0-1.1) 11/22/18 06:00 AST 24 IU/L (14-46) 11/22/18 06:00 ALT 19 IU/L (9-52) 11/22/18 06:00 Alkaline Phosphatase 92 IU/L (38-126) 11/22/18 06:00 POC Troponin I 0.00 ng/mL (0.00-0.08) 11/22/18 07:41 NT-Pro-B Natriuret Pep 119 pg/mL (0-450) 11/22/18 06:00 Total Protein 7.5 g/dL (6.3-8.2) 11/22/18 06:00 Albumin 4.1 g/dL (3.5-5.0) 11/22/18 06:00 Lipase 288 IU/L (23-300) 11/22/18 06:00 Assessment & Plan Assessment: Pulmonary embolism (Acute) - bilateral, recurrent Chest pain (Acute) - resolved Elevated troponin (Acute) - 2/2 PE Hypoxemic resp failure, acute - 2/2 PE PAF Severe dementia H/o syncope, falls HTN GERD Plan: -Oxygen prn. -Continue home meds. -Full dose Lovenox. -PT/OT. -Pt pulling off lines/IVs/telemetry. Letting herbe without them, since they cause her agitation/discomfort. -[facility] palliative to meet w/ MDPOA Edwar and daughter Alyx tomorrow to address goals of care, as Tx is medically futile w/ poor prognosis. Hospice appropriate. -Ethics consult if family still wants full Tx. -Code status - full, per . -VTE ppx - Lovenox. DISPO: inpatient.
[2018-11-23 04:28] LABS: PLATELET COUNT 227 10^3/uL (150-400)
[2018-11-23] MEDS: LEVOTHYROXINE 50 MCG TAB PO SCH (06:11)
--- NOTE | 2018-11-23 07:44 | PDMN ---
Medical Necessity Medical necessity: MCG: M290 Pulm. Embolism A-4 days: Admission is indicated for 1 or more of the following: Hypoxemia. pt 86% RA, mid 90's on 3 L., elevated d-dimer,. Positive cardiac biomarker (eg, troponin T or I greater than 0.1 ng/mL (mcg/L), mildly elevated trop.,( 0.13). Chest CT shows bilat. segmental and subsegmental pe. PMHx: afib, dementia, GERD, HTN, PE h/o syncope, falls. anticipate > 2 MN ongoing med nec care
[2018-11-23] MEDS: ASPIRIN 81 MG CHEWABLE TAB PO SCH (08:19)
[2018-11-23] MEDS: CHOLECALCIFEROL VIT D3 2,000 UNITS TAB/CAP PO SCH (08:19)
[2018-11-23] MEDS: OMEGA-3 FATTY ACIDS 1,000 MG CAP PO SCH (08:19)
[2018-11-23] MEDS: CYANO/VITAMIN B12 1000 MCG TAB PO SCH (08:19)
[2018-11-23] MEDS: MIRTAZAPINE 15 MG TAB PO SCH (08:20)
[2018-11-23] MEDS: ENOXAPARIN 80 MG/0.8 ML SYR SC SCH ×2 (08:20→21:57)
[2018-11-23] MEDS: SERTRALINE HCL 50 MG TAB PO SCH (08:20)
--- NOTE | 2018-11-23 10:24 | PDCARPN ---
Cardiology Progress Note Chief Complaint: No cardiovascular complaints. Patient slept fair last night. Assessment/Plan: Assessment: 11-23-18 Patient is doing well today. Sitting up in chair, watching a movie. No cardiovascular complaints, but the patient has little short term memory. She was uncertain on why she was in the hospital. Repeat troponin (after POC) was zero. Ongoing use of lovenox for the PE diagnosis. Palliative care consult is pending for this afternoon with , patient, and daughter. Cardiology with concerns about home situation and patient's need to have therapy on coumadin (likely) for the newly appreciated PE diagnosis. 11-22-18 Patient is a 78 y/o female with severe dementia, HTN, hypothyroidism, pulmonary emboli, pAF (not on anticoagulation given degree of dementia and falls), and GERD, who presents to the ER at [facility] with complaints of chest discomfort. Discomfort was reportedly a "pain". Symptoms began at 0430 this morning. Ultimately, the patient's brought her to the ER for evaluation. In the ER, given the symptoms reported, ECG and cardiac labs were obtained. No dynamic ST/T wave changes were noted (sinus bradycardia with non specific ST/T wave changes). Troponin with mild elevation noted (0.13). D-dimer was elevated to >5, and CT to rule out pulmonary emboli was performed. This testing with both segmental and subsegmental emboli noted. At present, the patient is resting comfortably. has gone home. Patient's ability to communicate is fair, but dementia provides a significant limitation. At this point in time, the patient is a full COR. Plan: (1) Family conference today (2) Patient will need to be on therapy with coumadin for the PE diagnosis that was noted - this would also protect the patient from CVA with the pAF history - discussions about risk/benefit for this patient should be part of the family confer (3) Continue therapy on synthroid for the history of hypothyroidism Subjective: No cardiovascular complaints Objective: Vital Signs (8 Hrs) Temp Pulse Resp BP Pulse Ox 11/23/18 07:57 36.6 C 60 13 165/89 H 88 L 11/23/18 03:18 36.4 C 53 L 16 171/78 H 89 L Intake/Output (24 Hrs) 11/22/18 11/23/18 11/24/18 05:59 05:59 05:59 Intake Total 560 Output Total 1850 Balance -1290 Intake: Oral (ml) 560 Output: Urine (ml) 1850 Toilet 1850 Other: Weight 73.7 kg Number of Voids Diapers/Briefs 1 Incontinence 1 Toilet 1 Number of Stools Toilet 1 Result Diagrams: 11/23/18 03:56 11/23/18 03:56 Telemetry: normal sinus rhythm with PACs - Physical Exam Constitutional: WDWN, no apparent distress Eyes: PERRL, EOMI Ears, Nose, Mouth, Throat: moist mucous membranes Cardiovascular: regular rate and rhythm, systolic murmur, pulses symmetric bilat , No jugular vein distention Peripheral Pulses: 2+: dorsalis-pedis (R), dorsalis-pedis (L) Respiratory: clear to auscultate bilat, no crackles, reduced air movement Gastrointestinal: normoactive bowel sounds Skin: no rashes Musculoskeletal: no muscular tenderness Neurologic: CN II-XII grossly intact Psychiatric: cooperative, following commands, encephalopathic (dementia is severe) ICD10 Worksheet Patient Problems: Problems Problem Status Onset Chest pain Acute Elevated troponin Acute Hypoxia Acute Pulmonary embolism Acute Laceration of chin Acute Shortness of breath Acute Syncope Acute
--- NOTE | 2018-11-23 14:02 | HOSPPROG ---
Hospitalist Progress Note Assessment/Plan: Pulmonary embolism (Acute) - bilateral, recurrent Chest pain (Acute) - resolved Elevated troponin (Acute) - 2/2 PE Hypoxemic resp failure, acute - 2/2 PE PAF Severe dementia Dysphagia H/o syncope, falls HTN GERD Plan: -Oxygen prn. -Continue home meds. -Full dose Lovenox. High fall risk. Unable to care for self. -Add lisinopril for HTN -PT/OT. -Pt pulling off lines/IVs/telemetry. Letting her be without them, since they cause her agitation/discomfort. -[facility] rodriguez has seen the patient in the past. Recommend family meeting w / her daughter and stepdaughter and . declined today's meeting, but agrees to schedule one after I had a lengthy d/w him. He is open to have meeting on Sat. Asked CM to coordinate. is going to take some time to think about things. I told him that hospice would be the best option, but he doesn't seem to understand the whole situation. In the past, there has been concern about his mental capacity to make decisions. -Ethics consult -- for medical futility. Pt has been here many times in the past , APS has been called to investigate in the past, has been reported to be a hoarder. It is questionable whether pt gets reliable home care, as has turned away C in the past. -Code status - full. -VTE ppx - Lovenox. DISPO: inpatient. Objective: Vital Signs Temp Pulse Resp BP Pulse Ox 36.6 C 64 15 131/78 H 90 L 11/23/18 11:28 11/23/18 11:28 11/23/18 11:28 11/23/18 11:28 11/23/18 11:28 Laboratory Results 11/23/18 03:56 11/23/18 03:56 11/22/18 11/23/18 11/24/18 05:59 05:59 05:59 Intake Total 560 Output Total 1850 Balance -1290 PT 12.6 SEC (12.0-15.0) 11/22/18 06:51 INR 0.98 (0.83-1.16) 11/22/18 06:51 - Time Spent With Patient Time Spent with Patient: greater than 35 minutes Time Spent with Patient: Greater than 35 minutes spent on this patients care, greater than 50% of time spent counseling, educating, and coordinating care regarding the above mentioned plan. - Physical Exam Constitutional: no apparent distress, appears nourished Eyes: EOMI, No scleral injection Ears, Nose, Mouth, Throat: moist mucous membranes, hearing normal Respiratory: no respiratory distress Gastrointestinal: No distension Skin: warm, normal color Neurologic: CN II-XII Intact, No AAOx3 Psychiatric: not anxious, poor insight, poor judgement, poor memory ICD10 Worksheet Patient Problems: Problems Problem Status Onset Chest pain Acute Elevated troponin Acute Hypoxia Acute Pulmonary embolism Acute Laceration of chin Acute Shortness of breath Acute Syncope Acute
[2018-11-23] MEDS: LISINOPRIL 5 MG TAB PO SCH (15:46)
--- NOTE | 2018-11-23 17:24 | ASMTCMCOM ---
CM Note CM Note Notes: 11/23/2018 Case Management Note Phone call from Sri, pt daughter. Best contact number is [phone] (cell) [phone]. Sri agrees that living situation is unsafe and has concerns. Sri states that pt "will without her" Discussed concerns re: Edwar's ability to make decisions in the best interest of the pt. Sri agrees Edwar is compromised. Arranged meeting at 1300 on Saturday with Sri to include Lelia Vann MD and leasing representative from [facility] palliative team or [facility] palliative warehouse team leader who regularly visits pt home. Per ED staff, EMS has placed an APS call. VM to [facility] requesting call back to verify if case was opened. EMS has been called to house and not transported mutliple times in addition to the 13 transports since July to [facility]. Phone call to [facility]. Susan Grace [phone] stated that there is a shared room available and that [facility] needs to assess pt prior to admission. [facility] would like case management to call when assessment is appropriate. Pending outcome of assessment pt could d/c directly to [facility]. Susan stated that Edwar could undergo and assessment and pending outcome could possibly move in with pt at [facility]. Phone call to Edwar. Edwar was fixated that meeting had to happen on Saturday b/c of work concerns. Per Sri, Edwar has no meetings on Saturday. Edwar unable to understand importance of meeting to discuss next steps for care of Allison. Edwar stated that [facility] has a months long wait list. Informed Edwar that [facility] had a room available for d/c, Edwar stated "everything is moving to fast and there are things to consider such as my mental state" Edwar agreed to attend meeting tomorrow at 1 pm. Left for Lelia (Edwar's daughter who is a geriatric RN with [facility]) [phone] requesting attendance at meeting. Notified SHAHNAZ CHEUNG, [facility], [facility] palliative warehouse team leader Irais and Ethics team. Ethics to attend meeting tomorrow at 1300. Case Management d/c poc: to be determined. Case Management to follow. Date Signed: 11/23/2018 05:23 PM Electronically Signed By:Kellen Amado RN
[2018-11-24] MEDS ORDERED: ATROPINE SULFATE 1 MG/10 ML SYR ONE (06:29)
[2018-11-24] MEDS: LEVOTHYROXINE 50 MCG TAB PO SCH (06:40)
[2018-11-24] MEDS: ENOXAPARIN 80 MG/0.8 ML SYR SC SCH (09:01)
[2018-11-24] MEDS: LISINOPRIL 5 MG TAB PO SCH (09:02)
[2018-11-24] MEDS: SERTRALINE HCL 50 MG TAB PO SCH (09:02)
[2018-11-24] MEDS: CYANO/VITAMIN B12 1000 MCG TAB PO SCH (09:02)
[2018-11-24] MEDS: CHOLECALCIFEROL VIT D3 2,000 UNITS TAB/CAP PO SCH (09:02)
[2018-11-24] MEDS: OMEGA-3 FATTY ACIDS 1,000 MG CAP PO SCH (09:02)
[2018-11-24] MEDS: MIRTAZAPINE 15 MG TAB PO SCH (09:02)
[2018-11-24] MEDS: ASPIRIN 81 MG CHEWABLE TAB PO SCH (09:03)
--- NOTE | 2018-11-24 10:40 | CPEKG ---
Test Reason : OPEN Blood Pressure : / mmHG Vent. Rate : 050 BPM Atrial Rate : 050 BPM P-R Int : 163 ms QRS Dur : 095 ms QT Int : 495 ms P-R-T Axes : 014 -38 043 degrees QTc Int : 452 ms Sinus rhythm Left axis deviation Confirmed by Long Mejia ([id number]) on 11/24/2018 10:40:17 AM Referred By: Jinny Dela Cruz Confirmed By:Long Mejia
--- NOTE | 2018-11-24 10:42 | CPEKG ---
Test Reason : OPEN Blood Pressure : / mmHG Vent. Rate : 095 BPM Atrial Rate : 094 BPM P-R Int : 198 ms QRS Dur : 083 ms QT Int : 412 ms P-R-T Axes : 047 -12 -45 degrees QTc Int : 518 ms Sinus rhythm Prolonged QT interval Confirmed by Long Mejia ([id number]) on 11/24/2018 10:41:57 AM Referred By: Jinny Dela Cruz Confirmed By:Long Mejia
--- NOTE | 2018-11-24 10:43 | CPEKG ---
Test Reason : OPEN Blood Pressure : / mmHG Vent. Rate : 051 BPM Atrial Rate : 051 BPM P-R Int : 192 ms QRS Dur : 100 ms QT Int : 526 ms P-R-T Axes : 030 -15 060 degrees QTc Int : 485 ms Sinus rhythm Low voltage, extremity leads Nonspecific T abnormalities, anterior leads Confirmed by Long Mejia ([id number]) on 11/24/2018 10:42:58 AM Referred By: Jinny Dela Cruz Confirmed By:Long Mejia
--- NOTE | 2018-11-24 14:58 | HOSPPROG ---
Hospitalist Progress Note Assessment/Plan: Pulmonary embolism (Acute) - bilateral, recurrent -on lovenox, will transition to eliquis Hypoxemic resp failure, acute - 2/2 PE -O2 requirement from 4 LPM to 1 LPM cont to wean as able Elevated troponin - likely 2/2 PE PAF - currently bradycardic -anti-coagulation as above Bradycardia - had vasovagal episode last night per RN report, asymptomatic this am, HR as low as 40 today but normotensive without CP or SOB. No AV johnnie blockers. SSRI and Mirtazapine unlikely to cause bradycardia (<1%) -discussed with cards, not a candidate for a pacemaker, had recent zio patch as outpt, will obtain results as it may help us better understand her syncope H/o syncope - unclear if this is 2/2 bradycardia or PE Advanced dementia - palliative / ethics meeting today as there is concern home environment is not safe -avoid bzd's, opiates -prn haldol for agitation Dysphagia HTN - decrease lisinopril to 2.5 mg daily as SBP 90's on 5 mg Goals of care - Palliative care team and Gretchen met with , daughter. Hospice had been considered by care team, but family not ready for this. They wish for her to remain full code for now. I will re-address code status tomorrow as DNR seems appropriate. Dispo - family agrees to transition to [facility]. We'll await their evaluation in next 1-2 days. Cont inpt. Subjective: Pt doing well. No complaints. Denies CP or SOB. NO fevers/ chills. She is able to tell me her full name, but doesn't know where she is. However, when asked where she thinks she is, she says the hospital. She also knows it is 2019. Objective: Vital Signs Temp Pulse Resp BP Pulse Ox 36.7 C 40 L 18 98/52 L 97 11/24/18 12:13 11/24/18 12:13 11/24/18 12:13 11/24/18 12:13 11/24/18 12:13 Laboratory Results 11/23/18 03:56 11/23/18 03:56 11/23/18 11/24/18 11/25/18 05:59 05:59 05:59 Intake Total 560 1240 Output Total 1850 300 Balance -1290 1240 -300 PT 12.6 SEC (12.0-15.0) 11/22/18 06:51 INR 0.98 (0.83-1.16) 11/22/18 06:51 - Physical Exam Constitutional: no apparent distress Eyes: PERRL Ears, Nose, Mouth, Throat: moist mucous membranes Cardiovascular: regular rate and rhythym Respiratory: no respiratory distress, clear to auscultation Gastrointestinal: normoactive bowel sounds, soft, non-tender abdomen Skin: warm Musculoskeletal: full muscle strength Psychiatric: poor insight, poor judgement, poor memory ICD10 Worksheet Patient Problems: Problems Problem Status Onset Chest pain Acute Elevated troponin Acute Hypoxia Acute Pulmonary embolism Acute Laceration of chin Acute Shortness of breath Acute Syncope Acute
--- NOTE | 2018-11-24 15:25 | ASMTCMCOM ---
CM Note CM Note Notes: Pts case discussed in tx rounds. Pt had a palliative care meeting at 1PM today to discuss goals of care and code status. At this time, Edwar is not ready to change code status. Edwar is interested in having [facility] come eval pt. CM left a msg for Latonia at [facility] (P#: [phone]) to see if she could come tomorrow around 2:30PM, per the request of Edwar/family. Edwar is not interested in getting an eval to transition to [facility] at this time. CM to follow. Plan: TBD Date Signed: 11/24/2018 03:23 PM Electronically Signed By:FARNAZ Cheema
--- NOTE | 2018-11-24 16:13 | PDCARPN ---
Cardiology Progress Note Chief Complaint: Patient is comfortable Assessment/Plan: Assessment: 11-24-18 No cardiovascular complaints, but the patient's dementia continues to limit answers that are useful. Concerns about bradycardia were voiced by staff, and further information about outpatient Zio indication and findings (no atrial fibrillation, and no profoundly bradycardic rhythms were noted in late Jul 2018) . No voiced complaints of chest pains or pressure. Family meeting have occurred, and ongoing discussions about placement and more local intermodal truck driver care are in discussion. Anticoagulation for the PE has been started. 11-23-18 Patient is doing well today. Sitting up in chair, watching a movie. No cardiovascular complaints, but the patient has little short term memory. She was uncertain on why she was in the hospital. Repeat troponin (after POC) was zero. Ongoing use of lovenox for the PE diagnosis. Palliative care consult is pending for this afternoon with , patient, and daughter. Cardiology with concerns about home situation and patient's need to have therapy on coumadin (likely) for the newly appreciated PE diagnosis. 11-22-18 Patient is a 78 y/o female with severe dementia, HTN, hypothyroidism, pulmonary emboli, pAF (not on anticoagulation given degree of dementia and falls), and GERD, who presents to the ER at [facility] with complaints of chest discomfort. Discomfort was reportedly a "pain". Symptoms began at 0430 this morning. Ultimately, the patient's brought her to the ER for evaluation. In the ER, given the symptoms reported, ECG and cardiac labs were obtained. No dynamic ST/T wave changes were noted (sinus bradycardia with non specific ST/T wave changes). Troponin with mild elevation noted (0.13). D-dimer was elevated to >5, and CT to rule out pulmonary emboli was performed. This testing with both segmental and subsegmental emboli noted. At present, the patient is resting comfortably. has gone home. Patient's ability to communicate is fair, but dementia provides a significant limitation. At this point in time, the patient is a full COR. Plan: (1) Patient is not a candidate, given her profound degree of dementia, for pacer placement (2) Given the PE diagnosis rendered with this admission, anticoagulation is indicated, but there are concerns about her risks with this therapy given the aforementioned dementia (3) Ongoing discussion with family and social work to determine placement options. Subjective: No cardiovascular complaints Objective: Vital Signs (8 Hrs) Temp Pulse Resp BP Pulse Ox 11/24/18 15:59 36.8 C 48 L 18 113/59 L 84 L 11/24/18 12:13 36.7 C 40 L 18 98/52 L 97 11/24/18 09:02 143/69 H Intake/Output (24 Hrs) 11/23/18 11/24/18 11/25/18 05:59 05:59 05:59 Intake Total 560 1240 Output Total 1850 300 Balance -1290 1240 -300 Intake: Oral (ml) 560 240 IV Intake (ml) 1000 Output: Urine (ml) 1850 300 Catheter 300 Toilet 1850 Other: Weight 73.7 kg Output Comment Catheter unable to void; bladder scan >465 Number of Voids Diapers/Briefs 1 1 Incontinence 1 Toilet 1 Number of Stools Toilet 1 1 Bladder Scan Volume (ml) Diapers/Briefs 305 Result Diagrams: 11/23/18 03:56 11/23/18 03:56 Telemetry: sinus rhythm - Physical Exam Constitutional: WDWN, healthy appearing, no apparent distress Eyes: PERRL, EOMI Ears, Nose, Mouth, Throat: moist mucous membranes Cardiovascular: regular rate and rhythm, pulses symmetric bilat, No jugular vein distention Peripheral Pulses: 2+: dorsalis-pedis (R), dorsalis-pedis (L) Respiratory: clear to auscultate bilat, no crackles, no wheezes Gastrointestinal: normoactive bowel sounds Skin: no rashes Musculoskeletal: no muscular tenderness Neurologic: CN II-XII grossly intact Psychiatric: interactive, other (severe dementia) ICD10 Worksheet Patient Problems: Problems Problem Status Onset Chest pain Acute Elevated troponin Acute Hypoxia Acute Pulmonary embolism Acute Laceration of chin Acute Shortness of breath Acute Syncope Acute
--- NOTE | 2018-11-24 16:46 | ASMTCMCOM ---
CM Note CM Note Notes: CM spoke to Latonia at [facility]. Latonia will call CM tomorrow morning to see if 2:30PM will work for her to come christiano Vann is requesting for a hospital bed. CM initated a referral to [facility] for a hospital bed. CM will need to send over Dr. Jean Baptiste's progress note from today to [facility]. CM to follow. Date Signed: 11/24/2018 04:45 PM Electronically Signed By:FARNAZ Cheema
[2018-11-24] MEDS: APIXABAN 5 MG TAB PO SCH (21:32)
[2018-11-25] MEDS: LEVOTHYROXINE 50 MCG TAB PO SCH (07:15)
[2018-11-25] MEDS: APIXABAN 5 MG TAB PO SCH ×2 (09:23→21:01)
[2018-11-25] MEDS: ASPIRIN 81 MG CHEWABLE TAB PO SCH (09:24)
[2018-11-25] MEDS: LISINOPRIL 5 MG TAB PO SCH (09:25)
[2018-11-25] MEDS: SERTRALINE HCL 50 MG TAB PO SCH (09:26)
[2018-11-25] MEDS: MIRTAZAPINE 15 MG TAB PO SCH (09:26)
[2018-11-25] MEDS: CHOLECALCIFEROL VIT D3 2,000 UNITS TAB/CAP PO SCH (09:28)
[2018-11-25] MEDS: OMEGA-3 FATTY ACIDS 1,000 MG CAP PO SCH (09:28)
[2018-11-25] MEDS: CYANO/VITAMIN B12 1000 MCG TAB PO SCH (09:28)
--- NOTE | 2018-11-25 13:05 | HOSPPROG ---
Hospitalist Progress Note Assessment/Plan: Pulmonary embolism (Acute) - bilateral, recurrent -cont eliquis Hypoxemic resp failure, acute - 2/2 PE -O2 requirement from 4 LPM to 2 LPM -will likely dc on home O2 Elevated troponin - likely 2/2 PE PAF - currently bradycardic -anti-coagulation as above Bradycardia - discussed with cards, not a candidate for pacemaker -avoid AV johnnie blockers H/o syncope - unclear if this was 2/2 bradycardia or PE Advanced dementia - planning for transfer to memory care unit -avoid bzd's, opiates -prn haldol for agitation Dysphagia HTN - decreased lisinopril to 2.5 mg daily as SBP 90's on 5 mg Goals of care - Palliative care team and Gretchen met with , daughter yest. Hospice had been considered by care team, but family not ready for this. They wish for her to remain full code for now. I attempted to call daughter Alyx to readdress code status, no answer on one number and other is disconnected Dispo - family agrees to transition to [facility] care. We're awaiting their evaluation. Cont inpt. Subjective: Pt is withdrawn. Answers basic questions. Says "I know what you' re doing" when I mentioned getting out of the hospital possibly tomorrow. Denies pain. Objective: Vital Signs Temp Pulse Resp BP Pulse Ox 36.6 C 46 L 16 124/63 H 99 11/25/18 12:00 11/25/18 12:00 11/25/18 12:00 11/25/18 12:00 11/25/18 12:00 Laboratory Results 11/23/18 03:56 11/23/18 03:56 11/24/18 11/25/18 11/26/18 05:59 05:59 05:59 Intake Total 1240 880 Output Total 300 200 Balance 1240 580 -200 PT 12.6 SEC (12.0-15.0) 11/22/18 06:51 INR 0.98 (0.83-1.16) 11/22/18 06:51 - Physical Exam Constitutional: no apparent distress Eyes: PERRL Ears, Nose, Mouth, Throat: moist mucous membranes Cardiovascular: regular rate and rhythym Respiratory: no respiratory distress, clear to auscultation Gastrointestinal: normoactive bowel sounds, soft, non-tender abdomen Skin: warm Musculoskeletal: full muscle strength Psychiatric: depressed, flat affect, poor insight, poor judgement, poor memory ICD10 Worksheet Patient Problems: Problems Problem Status Onset Chest pain Acute Elevated troponin Acute Hypoxia Acute Pulmonary embolism Acute Laceration of chin Acute Shortness of breath Acute Syncope Acute
[2018-11-26] MEDS: LEVOTHYROXINE 50 MCG TAB PO SCH (04:38)
[2018-11-26] MEDS: CHOLECALCIFEROL VIT D3 2,000 UNITS TAB/CAP PO SCH (08:42)
[2018-11-26] MEDS: SERTRALINE HCL 50 MG TAB PO SCH (08:42)
[2018-11-26] MEDS: CYANO/VITAMIN B12 1000 MCG TAB PO SCH (08:42)
[2018-11-26] MEDS: MIRTAZAPINE 15 MG TAB PO SCH (08:42)
[2018-11-26] MEDS: APIXABAN 5 MG TAB PO SCH ×2 (08:42→20:50)
[2018-11-26] MEDS: ASPIRIN 81 MG CHEWABLE TAB PO SCH (08:42)
[2018-11-26] MEDS: LISINOPRIL 5 MG TAB PO SCH (08:43)
[2018-11-26] MEDS: OMEGA-3 FATTY ACIDS 1,000 MG CAP PO SCH ×2 (08:47→08:50)
--- NOTE | 2018-11-26 12:02 | HOSPPROG ---
Hospitalist Progress Note Assessment/Plan: Pulmonary embolism (Acute) - bilateral, recurrent -cont eliquis Hypoxemic resp failure, acute - 2/2 PE, resolved, now on room air Elevated troponin - likely 2/2 PE PAF - currently bradycardic -anti-coagulation as above Bradycardia - discussed with cards, not a candidate for pacemaker -avoid AV johnnie blockers H/o syncope - unclear if this was 2/2 bradycardia or PE Advanced dementia - planning for transfer to memory care unit -avoid bzd's, opiates -prn haldol for agitation Dysphagia HTN - decreased lisinopril to 2.5 mg daily as SBP 90's on 5 mg Goals of care - Discussed dispo and goals of care with Deysi for 30 minutes. She agrees that pt will be best served at [facility] and will transition to DNR. A separate 20 minute meeting with Edwar, and Latonia, other daughter for advanced care planning. We all agree with transfer to [facility]. We will continue anticoagulation for PE, [facility] is ok with this. Dispo - cont inpt, likely to [facility] tomorrow Subjective: Pt up in bed, more pleasant today. Denies pain. No CP or SOB. Not eating much today. Objective: Vital Signs Temp Pulse Resp BP Pulse Ox 36.4 C 48 L 13 116/66 95 11/26/18 11:16 11/26/18 11:16 11/26/18 11:16 11/26/18 11:16 11/26/18 11:16 Laboratory Results 11/23/18 03:56 11/23/18 03:56 11/25/18 11/26/18 11/27/18 05:59 05:59 05:59 Intake Total 880 680 Output Total 300 1050 Balance 580 -370 PT 12.6 SEC (12.0-15.0) 11/22/18 06:51 INR 0.98 (0.83-1.16) 11/22/18 06:51 - Physical Exam Constitutional: no apparent distress Eyes: PERRL Ears, Nose, Mouth, Throat: moist mucous membranes Cardiovascular: regular rate and rhythym Respiratory: no respiratory distress Gastrointestinal: normoactive bowel sounds, soft, non-tender abdomen Skin: warm Psychiatric: poor insight, poor judgement, poor memory ICD10 Worksheet Patient Problems: Problems Problem Status Onset Chest pain Acute Elevated troponin Acute Hypoxia Acute Pulmonary embolism Acute Laceration of chin Acute Shortness of breath Acute Syncope Acute
--- NOTE | 2018-11-26 16:19 | ASMTCMCOM ---
CM Note CM Note Notes: 11/26/2018 Case Management Note Multiple phone calls today with multiple family members as well as with Latonia Clements at [facility] [phone]. Pt has been accepted to [facility]. Faxed records as requested by [facility] on all scripts. Paperwork for [facility] in paper chart; will need to be faxed to [phone] prior to pt discharge tomorrow by case management. Meeting with Edwar Miranda and Edwar's daughter Lelia Schmid [phone]. [facility] to meet family at 10 am tomorrow. [facility] will arrange for equipment delivery at [facility]. Discussed above with [facility] palliative team members, RN, and optical laboratory manager department. Case Management d/c poc: [facility] with [facility]. Case Management to follow. Date Signed: 11/26/2018 04:18 PM Electronically Signed By:Kellen Amado RN
[2018-11-27] MEDS: LEVOTHYROXINE 50 MCG TAB PO SCH (07:23)
[2018-11-27] MEDS: ASPIRIN 81 MG CHEWABLE TAB PO SCH (09:59)
[2018-11-27] MEDS: CHOLECALCIFEROL VIT D3 2,000 UNITS TAB/CAP PO SCH (09:59)
[2018-11-27] MEDS: MIRTAZAPINE 15 MG TAB PO SCH (09:59)
[2018-11-27] MEDS: CYANO/VITAMIN B12 1000 MCG TAB PO SCH (10:00)
[2018-11-27] MEDS: OMEGA-3 FATTY ACIDS 1,000 MG CAP PO SCH (10:00)
[2018-11-27] MEDS: APIXABAN 5 MG TAB PO SCH (10:01)
[2018-11-27] MEDS: LISINOPRIL 5 MG TAB PO SCH (10:04)
[2018-11-27] MEDS: SERTRALINE HCL 50 MG TAB PO SCH (10:10)
--- NOTE | 2018-11-27 12:36 | PDIAF ---
- Diagnosis Diagnosis: PE, advanced dementia Code Status: Full Code - Medication Management Discharge Medications: electronically signed and located in the Home Medication List. PICC Care - Routine: N/A - Orders Oxygen: prn Diet Recommendation: no restrictions on diet Diet Texture: Dysphagia 3 - Advanced - Moist, Bite-Size, Thin Liquids, Meds Whole w/Liquids Additional Instructions: [facility] - Follow Up Care Current Providers and Referrals: Fariba Matos MD [Primary Care Provider] - As per Instructions
--- NOTE | 2018-11-27 13:30 | PDIAF ---
- Diagnosis Diagnosis: PE, advanced dementia Code Status: Full Code - Medication Management Discharge Medications: electronically signed and located in the Home Medication List. PICC Care - Routine: N/A - Orders Oxygen: prn Diet Recommendation: no restrictions on diet, other (Mechanical soft) Additional Instructions: [facility] - Follow Up Care Current Providers and Referrals: Fariba Matos MD [Primary Care Provider] - As per Instructions
--- NOTE | 2018-11-27 13:31 | WOCRNPDOC ---
CLAIRE Advanced Assessment Note - Skin Integrity Problem, Advanced Assess Left Sacrum Pressure Injury Dressing Type: Mepilex Border (sacral) Dressing Description: Clean/Dry, Intact Closure Description: Not Approximated Exudate Amount: None Integumentary Issue Intervention: Visualized Under Dressing Mitzy Wound Tissue: Blanching Wound Bed Constitution: Smooth Tissue Wound Edges: Attached, Well Defined Site Measurement - Head-to-Toe Length X Width X Depth (cm): 2.1x0.3x0.1 Pressure Injury Stage: Stage 2 Pressure Injury Present on Admit: No Skin Integrity Problem Comment: Patient identified during PIPP study as having an area of redness that caused concern. I visit the patient who is sitting up in her chair, waffle cushion in place. She is able to stand without assist. A mepilex sacral dressing is in place and is pulled back to reaveal a partial thickness opening. The area is blanching. The patient reports no tenderness to palpation. This likely represents a stage 2 pressure injury. A search of documentation doesn't show anything charted to the area until today, indicating that it developed while the patient was hospitalized. It appears that offloading measures have been in place during the care of this patient. As she is already scheduled to DC, will make sure there are wound care instructions in place. All patient questions answered. Emperatriz CHRISTIE aware. Right Sacrum Pressure Injury Dressing Type: Mepilex Border (sacral) Dressing Description: Clean/Dry, Intact Closure Description: Not Approximated Exudate Amount: None Integumentary Issue Intervention: Visualized Under Dressing Mitzy Wound Tissue: Blanching Wound Bed Color: Alsey Site Measurement - Head-to-Toe Length X Width X Depth (cm): 2.6x0.4x0.1 Pressure Injury Stage: Stage 2 Pressure Injury Present on Admit: No
--- NOTE | 2018-11-27 13:57 | ASMTLACE ---
GUADALUPEE Length of stay for Answers: 4-6 days current admission Acuity / Level of Answers: Yes Care: Did the patient have an inpatient admission? Comorbidities - select Answers: Dementia all that apply Other Notes: PE, GERD, HTN, afib, hy pot hyroidism # of Emergency department Answers: 12+ visits in the last 6 months Social determinants Answers: Mental health diagnosis (anxiety, depression, pers onality disorders, etc.) Score: 20 Date Signed: 11/27/2018 01:56 PM Electronically Signed By:Kellie Woodward RN
--- NOTE | 2018-11-27 14:01 | ASMTDCNOTE ---
Case Management Discharge Discharge Order Complete? Answers: Yes Patient to Obtain Answers: Independently Medications Transportation Arranged Answers: Family/Friends Faxed Final Orders Answers: Yes Family Notified Answers: Yes Discharge Comments Notes: [facility] rep and [facility] palliative rep met with patient's and daughter for an hour to discuss transition to hospice and to [facility]. Family is in agreement with plan. Gretchen ordered DME to be delivered to [facility]. I sent all requested paperwork to [facility]. Family will transport patient to [place]. MOST form in chart. Date Signed: 11/27/2018 02:00 PM Electronically Signed By:Kellie Woodward RN
--- NOTE | 2018-11-27 15:08 | ASDISCHSUM ---
Discharge Information Plan Status:Hospice-Home Medically Cleared to Leave: Discharge Date:11/27/2018 02:44 PM D/C Disposition:Assisted Living ADT D/C Disposition:Home, Routine, Self-Care Projected Discharge Date:11/24/2018 11:00 AM Transportation at D/C: Discharge Delay Reason: Follow-Up Date:11/24/2018 11:00 AM Discharge Slot: Final Diagnosis: Placement Information Referral Type:Palliative Care Referral ID:[id number] Provider Name:[facility] Address 1:[address] Phone Number: Address 2: Fax Number: [facility]:[place] Selection Factors: State:[place] Referral Type:Assisted Living Residence Referral ID:[id number] Provider Name:[facility] Address 1:[address] [place] [address] Address 2: City:[place] Selection Factors: State:[place] Patient Contact Information Contact Name:FAHAD Relationship: Address:[address] [place] [address] City:[place] Alternate Phone: State/Zip Code:[place] [address] Email: Financial Information Financial Class:Medicare Advantage Plans Primary Plan Desc:[facility] [employer] Primary Plan Number:[id number] Secondary Plan Desc: Secondary Plan Number: Assessment Information [facility] CM Progress Note CM Note CM Note Notes: 11/22/2018 Case Management Note Pt admitted with multiple PE in the setting of advanced dementia. Discussed in rounds. Pt has frequent hospital admits and/or visits to ED with 13 total ED visits or admissions since 2017. Please see case management d/c note from Jul 04, 2018 for complete list of services case management has attempted to coordinate with family. Phone call to [facility]. Pt is open with [facility]. [facility] to fax [facility] MDP and MOST form; provided fax number. VELASQUEZ is Edwar with second POA listed as daughter Alyx. Steven Rowell is geriatric RN with [employer]. Godinez stated concerns if is decisional and able to make safe decisions for pt. [facility] confirmed pt and live in a situation that would be considered hoarding driven by Edwar. [facility] to have family meeting with Edwar and daughter Alyx tomorrow to assess situation and attempt to address code status. Case Management requested phone call to update. Left vm with Edwar Cartwright with [facility] to confirm number of hours of support. Left VM with daughter Alyx [phone] requesting call back. Faxed updates to [facility]. Discussed w/ hospitalist, cardiology and RN. Case Management d/c poc: to be determined. Case Management to follow. Date Signed: 11/22/2018 03:54 PM Electronically Signed By:Kellen Amado RN LACE LACE Length of stay for Answers: 4-6 days current admission Acuity / Level of Answers: Yes Care: Did the patient have an inpatient admission? Comorbidities - select Answers: Dementia all that apply Other Notes: PE, GERD, HTN, afib, hy pot hyroidism # of Emergency department Answers: 12+ visits in the last 6 months Social determinants Answers: Mental health diagnosis (anxiety, depression, pers onality disorders, etc.) Score: 20 Date Signed: 11/27/2018 01:56 PM Electronically Signed By:Kellie Woodward RN [facility] CM Progress Note CM Note CM Note Notes: 11/23/2018 Case Management Note Phone call from Sri, pt daughter. Best contact number is [phone] (cell) [phone]. Sri agrees that living situation is unsafe and has concerns. Sri states that pt "will without her" Discussed concerns re: Edwar's ability to make decisions in the best interest of the pt. Sri agrees Edwar is compromised. Arranged meeting at 1300 on Saturday with Sri to include Lelia Vann MD and litigation claim representative from [facility] palliative team or [facility] palliative steam tunnel feeder who regularly visits pt home. Per ED staff, EMS has placed an APS call. VM to [facility] requesting call back to verify if case was opened. EMS has been called to house and not transported mutliple times in addition to the 13 transports since July to [facility]. [facility] [phone] stated that there is a shared room available and that [facility] needs to assess pt prior to admission. [facility] would like case management to call when assessment is appropriate. Pending outcome of assessment pt could d/c directly to [facility]. Susan stated that Edwar could undergo and assessment and pending outcome could possibly move in with pt at [facility]. Phone call to Edwar. Edwar was fixated that meeting had to happen on Saturday b/c of work concerns. Per Sri, Edwar has no meetings on Saturday. Edwar unable to understand importance of meeting to discuss next steps for care of Allison. Edwar stated that [facility] has a months long wait list. Informed Edwar that [facility] had a room available for d/c, Edwar stated "everything is moving to fast and there are things to consider such as my mental state" Edwar agreed to attend meeting tomorrow at 1 pm. Left for Lelia (Edwar's daughter who is a geriatric RN with will) [phone] requesting attendance at meeting. Notified SHAHNAZ CHEUNG, [facility], [facility] palliative steam tunnel feeder Irais and Ethics team. Ethics to attend meeting tomorrow at 1300. Case Management d/c poc: to be determined. Case Management to follow. Date Signed: 11/23/2018 05:23 PM Electronically Signed By:Kellen Amado RN [facility] Progress Note CM Note CM Note Notes: Pts case discussed in tx rounds. Pt had a palliative care meeting at 1PM today to discuss goals of care and code status. At this time, Edwar is not ready to change code status. Edwar is interested in having [facility] come eval pt. CM left a msg for Latonia at [facility] (P#: [phone]) to see if she could come tomorrow around 2:30PM, per the request of Edwar/family. Edwar is not interested in getting an eval to transition to [facility] at this time. CM to follow. Plan: TBD Date Signed: 11/24/2018 03:23 PM Electronically Signed By:FARNAZ Cheema [facility] Progress Note CM Note CM Note Notes: CM spoke to Latonia at [facility]. Latonia will call CM tomorrow morning to see if 2:30PM will work for her to come eval pt. Edwar is requesting for a hospital bed. CM initated a referral to [facility] for a hospital bed. CM will need to send over Dr. Jean Baptiste's progress note from today to [facility]. CM to follow. Date Signed: 11/24/2018 04:45 PM Electronically Signed By:FARNAZ Cheema [facility] Progress Note CM Note CM Note Notes: 11/26/2018 Case Management Note Multiple phone calls today with multiple family members as well as with Latonia Clements at [facility] [phone]. Pt has been accepted to [facility]. Faxed records as requested by [facility] on all scripts. Paperwork for [facility] in paper chart; will need to be faxed to [phone] prior to pt discharge tomorrow by case management. Meeting with Edwar Miranda and Edwar's daughter Lelia Schmid [phone]. [facility] to meet family at 10 am tomorrow. [facility] will arrange for equipment delivery at [facility]. Discussed above with [facility] palliative team members, RN, and call or contact centre manager department. Case Management d/c poc: [facility] with [facility]. Case Management to follow. Date Signed: 11/26/2018 04:18 PM Electronically Signed By:Kellen Amado RN Case Management Discharge Plan Note Case Management Discharge Discharge Order Complete? Answers: Yes Patient to Obtain Answers: Independently Medications Transportation Arranged Answers: Family/Friends Faxed Final Orders Answers: Yes Family Notified Answers: Yes Discharge Comments Notes: [facility] rep and [facility] palliative rep met with patient's and daughter for an hour to discuss transition to hospice and to [facility]. Family is in agreement with plan. [facility] ordered DME to be delivered to [facility]. I sent all requested paperwork to [facility]. Family will transport patient to [facility]. MOST form in chart. Date Signed: 11/27/2018 02:00 PM Electronically Signed By:Kellie Woodward RN Intervention Information Intervention Type:*IM-Signed Date of Service:11/27/2018 01:59 PM Patient Type:Inpatient Staff Member:Betzaida Reese Hours: Discipline: Severity: Comment:
[2018-11-27 16:51] VITALS: BP 127/68
--- NOTE | 2018-11-27 18:30 | GDS ---
[f rep st] DISCHARGE SUMMARY DISCHARGE DIAGNOSES: 1. Bilateral pulmonary emboli. 2. Advanced dementia with a SLUMs of . 3. Acute hypoxemic respiratory failure secondary to pulmonary embolism. 4. Elevated troponin secondary to pulmonary embolism. 5. Paroxysmal atrial fibrillation. 6. Bradycardia, not candidate for a pacemaker. 7. Hypertension. CONSULTANTS: Salinas Madrid MD, Cardiology. HISTORY: For details, please see History and Physical dated November 22, 2018. In brief, Ms. Garcia is a 78-year-old female with a history of hypertension, atrial fibrillat ion, and advanced dementia, who presented to the emergency department with chest pain. Workup reveal ed bilateral pulmonary emboli. She was admitted to the hospital for further management. HOSPITAL COURSE: Patient was admitted to the cardiac telemetry unit. She was treated with Lovenox a nd transitioned to oral Eliquis. She did have an oxygen requirement of 4 L/minute initially, though was weaned down to room air on the day of discharge. She underwent cognitive evaluation given her ad vanced dementia with agitation and inability to participate in her care. It was thought that her pro gnosis was overall very poor and ongoing aggressive medical care was futile. As above, her SLUM scor e was . Ethics consult was obtained, as well as Palliative Care. Many lengthy family conversati ons were had and ultimately it was decided by her and daughter, who share medical power of at [facility], that she would be best served by transitioning to [facility] on hospice. [facility]osp[facility] does agree to her continuing on anticoagulation for her PE for comfort purposes, so this t herapy will be continued. However, it is agreed she will be DNR and will not return to the hospital. DISPOSITION: Patient is discharged to [facility] in stable condition. FOLLOWUP: Per the hospice team. DISCHARGE MEDICATIONS: Please see [facility] for completed outpatient medication list. Medications on discharge include: 1. Eliquis 10 mg p.o. b.i.d. to complete 3 more doses, then transition to 5 mg p.o. b.i.d. 2. Lisinopril 2.5 mg daily, #30, no refills. 3. She will continue all other outpatient medications previously prescribed. 4. Aspirin is discontinued given initiation of anticoagulation. 5. Further medications as per Hospice. /[id number]/MODL
[2018-11-29] MEDS ORDERED: APIXABAN 5 MG TAB PO SCH (09:00)
== END 2018-11-27 14:44 | disposition hospice, home (50) | DRG 175 ==
LOC: OBSVTOIN 07:40 → F2W 09:05
PROVIDERS: ADMIT Internal Medicine; ATTEND Internal Medicine
DX: I26.99 Other pulmonary embolism without acute cor pulmonale (principal); J96.01 Acute respiratory failure with hypoxia; L89.152 Pressure ulcer of sacral region, stage 2; Z66 Do not resuscitate; E86.9 Volume depletion, unspecified; F03.90 Unspecified dementia, unspecified severity, without behavioral disturbance, psychotic disturbance, mood disturbance, and anxiety; I48.0 Paroxysmal atrial fibrillation; R00.1 Bradycardia, unspecified; I10 Essential (primary) hypertension; E03.9 Hypothyroidism, unspecified; K21.9 Gastro-esophageal reflux disease without esophagitis; G89.29 Other chronic pain
CPT/HCPCS: 84484-ER; 92523-GN; 92526-GN; 92610-GN; 96374; 97161-GP; 97165-GO; 97530-GP; J0461; J1650; Q9967

== ENCOUNTER 2018-12-13 06:02 | Emergency (ER) | payer OTHER ==
--- NOTE | 2018-12-13 07:15 | EDPHY ---
H & P Time Seen by Provider: 12/13/18 06:53 HPI/ROS: HPI Right arm and shoulder pain. History of chronic chest pain. 78-year-old female with her . She is from the [facility]. She has a history of frequent visits to the emergency department for chest pain. She has had multiple negative workups. However, she was seen in the emergency department recently and was diagnosed with bilateral pulmonary embolisms. She is currently on Eliquis and is being administered this medication by [employer]. Staff notified at 5:30 a.m. This morning when she woke up that she was complaining of right shoulder and right arm pain. Currently she describes this to me as a soreness in her right shoulder and her right arm. She denies any shortness of breath currently. No chest pain currently. There is no history of fall or trauma. She denies any loss of sensation or weakness in her upper extremities. ROS: Constitutional: No fever, no chills. No weakness. Eyes: No discharge. No changes in vision. ENT: No sore throat. No nasal congestion or rhinorrhea. Respiratory: No cough. No shortness of breath. Cardiac: No chest pain, no palpitations. Gastrointestinal: No abdominal pain, no vomiting, no diarrhea. Genitourinary: No hematuria. No dysuria or increased frequency with urination. Musculoskeletal: No back pain. No neck pain. As above. Skin: No rashes. Neurological: No headache. No focal weakness or altered sensation. Past medical history: Dementia, hypertension, hypothyroid, GERD, pulmonary embolism on Eliquis, chronic pain with history of narcotic dependence, alcohol abuse, cataract surgery, redness surgery, appendectomy, ankle fusion and right knee surgery. Social history: She is here with her . Nonsmoker. No alcohol. As above. Physical Exam: General Appearance: Alert, no distress. This patient is responding to questions appropriately and in full sentences. This patient appears well- hydrated and well-nourished. Head: Normocephalic atraumatic. Eyes: Pupils equal and round no pallor or injection. No lid edema, erythema or injection. Right shoulder exam/right upper extremity exam: The right shoulder ranges freely in all planes of motion passively and actively. No soft tissue changes involving the right shoulder and right upper extremity. No erythema, warmth, edema, asymmetric swelling in comparison to the left upper extremity. No tenderness on palpation of the forearm and the arm. The right upper extremity is neurovascularly intact. Respiratory: There are no retractions, lungs are clear to auscultation with good air movement bilaterally. Cardiovascular: Regular rate and rhythm. No murmur. Gastrointestinal: Abdomen is soft and nontender, no masses, bowel sounds normal. No focal tenderness at McBurney's point. No Pang sign. Neurological: Motor sensory function is grossly intact. Cranial nerves are normal. Gait is normal. Skin: Warm and dry, no rashes. Musculoskeletal: Neck is supple and nontender. No midline cervical, thoracic tenderness on palpation. Extremities are symmetrical. All joints range without pain or impingement. Psychiatric: No agitation. No depression. Database: EKG: EKG time is 7:23 a.m.; EKG shows a narrow complex normal sinus rhythm with a ventricular rate of 65. PVC noted. Sinus arrhythmia noted. The SC, QRS, QT intervals are within normal limits. Nonspecific T-wave abnormalities noted in the anterior leads. There are no ST-T wave changes indicative of ischemic or injury pattern. No evidence of right heart strain. Interpreted by me. Imaging: Chest x-ray AP portable: The cardiac mediastinal silhouette is unremarkable. No evidence of infiltrate or pneumothorax. No acute cardiopulmonary disease process noted. Procedures: Emergency department course: Triage vital signs reviewed and are normal. The patient is afebrile. An IV was placed in triage. She was placed on a director sales support. EKG obtained and reviewed by myself. Troponin to be obtained. I feel that acute coronary syndrome is unlikely. This patient is on the proper treatment for her pulmonary emboli. If workup unremarkable, expected disposition is discharged to home. The patient was re-evaluated again at 9:00 a.m.. Delay secondary to critical patient in the department. Results of emergency department workup and diagnostic testing discussed with the patient and her . Currently the patient does not have any complaints. I feel she is safe for discharge. Her feels comfortable with her being discharged back to the Alzheimer's unit at [facility]. Follow-up and return to emergency department precautions have been reviewed with both of them. All of their questions were answered. The patient was discharged in good condition back to the Alzheimer's unit at [facility]. Differential Diagnosis: The differential diagnosis on this patient includes but is not limited to musculoskeletal shoulder pain, arthritis. Acute coronary syndrome, pneumonia, right upper extremity DVT, radiculopathy, fracture, subluxation, dislocation unlikely. This represents a partial list of diagnoses considered. These considerations are based on history, physical exam, past history, reassessment and diagnostic testing. Smoking Status: Never smoked Constitutional: Initial Vital Signs Temperature (C) 36.6 C 12/13/18 06:03 Heart Rate 86 12/13/18 06:03 Respiratory Rate 16 12/13/18 06:03 Blood Pressure 133/83 H 12/13/18 06:03 O2 Sat (%) 95 12/13/18 06:03 O2 Delivery Mode Room Air O2 (L/minute) 1 Allergies/Adverse Reactions: lanolin Allergy (Severe, Verified 12/13/18 06:06) Rash adhesive Allergy (Verified 12/13/18 06:06) bacitracin Allergy (Verified 12/13/18 06:06) codeine [Codeine] Allergy (Verified 12/13/18 06:06) neomycin Allergy (Verified 12/13/18 06:06) polymyxin B Allergy (Verified 12/13/18 06:06) Home Medications: Medication Instructions Recorded Levothyroxine [Synthroid 50 mcg 50 mcg PO DAILY06 06/26/18 (*)] Cholecalciferol Vit D3 [Vitamin D3 2,000 units PO DAILY@06/27/18 2000 units tab (OTC)] Cyanocobalamin [Vitamin B12 (*)] 500 mcg PO DAILY@12 06/27/18 [place]-3 Fatty Acids [Fish Oil 1000 1,000 mg PO DAILY 06/27/18 mg (*)] Mirtazapine 7.5 mg PO DAILY@12 11/03/18 Sertraline HCl [Zoloft 50mg (*)] 50 mg PO DAILY 11/03/18 Apixaban [Eliquis] 5 mg PO BID #60 tab 11/27/18 Lisinopril [Zestril 5 mg (*)] 2.5 mg PO DAILY #30 tab 11/27/18 Medical Decision Making - Diagnostics Imaging Results: Imaging Impressions Chest X-Ray 12/13/18 06:55 Impression: 1. Stable fibrotic change left base. - Data Points Laboratory Results: Laboratory Results 12/13/18 07:20 12/13/18 07:20 12/13/18 12/13/18 12/13/18 07:26 07:20 07:20 WBC RBC Hgb Hct MCV MCH MCHC RDW Plt Count MPV Neut % (Auto) Lymph % (Auto) [place] % (Auto) Eos % (Auto) Baso % (Auto) Nucleat RBC Rel Count Absolute Neuts (auto) Absolute Lymphs (auto) Absolute Monos (auto) Absolute Eos (auto) Absolute Basos (auto) Absolute Nucleated RBC Immature Gran % Immature Gran # PT 14.4 SEC SEC (12.0-15.0) INR 1.17 H (0.83-1.16) APTT 30.3 SEC SEC (23.0-38.0) Sodium 140 mEq/L mEq/L (135-145) Potassium 4.2 mEq/L mEq/L (3.5-5.2) Chloride 105 mEq/L mEq/L (97-110) Carbon Dioxide 26 mEq/l mEq/l (22-31) Anion Gap 9 mEq/L mEq/L (6-14) BUN 12 mg/dL mg/dL (7-23) Creatinine 0.9 mg/dL mg/dL (0.6-1.0) Estimated GFR > 60 Glucose 95 mg/dL mg/dL (70-100) Calcium 9.5 mg/dL mg/dL (8.5-10.4) POC Troponin I 0.01 ng/mL ng/mL (0.00-0.08) 12/13/18 07:20 WBC 6.19 10^3/uL 10^3/uL (3.80-9.50) RBC 5.20 10^6/uL 10^6/uL (4.18-5.33) Hgb 14.9 g/dL g/dL (12.6-16.3) Hct 47.0 % % (38.0-47.0) MCV 90.4 fL fL (81.5-99.8) MCH 28.7 pg pg (27.9-34.1) MCHC 31.7 g/dL L g/dL (32.4-36.7) RDW 15.2 % % (11.5-15.2) Plt Count 204 10^3/uL 10^3/uL (150-400) MPV 9.5 fL fL (8.7-11.7) Neut % (Auto) 58.0 % % (39.3-74.2) Lymph % (Auto) 29.6 % % (15.0-45.0) [place] % (Auto) 8.4 % % (4.5-13.0) Eos % (Auto) 3.2 % % (0.6-7.6) Baso % (Auto) 0.6 % % (0.3-1.7) Nucleat RBC Rel Count 0.0 % % (0.0-0.2) Absolute Neuts (auto) 3.59 10^3/uL 10^3/uL (1.70-6.50) Absolute Lymphs (auto) 1.83 10^3/uL 10^3/uL (1.00-3.00) Absolute Monos (auto) 0.52 10^3/uL 10^3/uL (0.30-0.80) Absolute Eos (auto) 0.20 10^3/uL 10^3/uL (0.03-0.40) Absolute Basos (auto) 0.04 10^3/uL 10^3/uL (0.02-0.10) Absolute Nucleated RBC 0.00 10^3/uL 10^3/uL (0-0.01) Immature Gran % 0.2 % % (0.0-1.1) Immature Gran # 0.01 10^3/uL 10^3/uL (0.00-0.10) PT INR APTT Sodium Potassium Chloride Carbon Dioxide Anion Gap BUN Creatinine Estimated GFR Glucose Calcium POC Troponin I Point of Care Test Results: Chemistry 12/13/18 07:26 POC Troponin I 0.01 ng/mL ng/mL (0.00-0.08) Departure - Departure Disposition: Home, Routine, Self-Care Clinical Impression: Right arm pain Condition: Good Instructions: Arthralgia (ED), Arm Pain (ED) Additional Instructions: Read and follow provided instructions. Follow-up with your primary care physician on Saturday for re-evaluation. Continue taking all medications as prescribed. Return to the emergency department for worsening symptoms or other serious concerns. Referrals: Patient,NotPresent [Primary Care Provider] - As per Instructions
[2018-12-13 07:28] LABS: PLATELET COUNT 204 10^3/uL (150-400)
[2018-12-13 07:38] LABS: INR 1.17 (0.83-1.16); PROTIME(PATIENT) 14.4 SEC (12.0-15.0)
[2018-12-13 09:30] VITALS: BP 128/65
--- NOTE | 2018-12-14 23:41 | CPEKG ---
Test Reason : OPEN Blood Pressure : / mmHG Vent. Rate : 065 BPM Atrial Rate : 064 BPM P-R Int : 175 ms QRS Dur : 093 ms QT Int : 430 ms P-R-T Axes : 041 -39 058 degrees QTc Int : 448 ms Sinus arrhythmia Ventricular premature complex LAD, consider LAFB or inferior infarct Low voltage, extremity leads Nonspecific T abnormalities, anterior leads Confirmed by Leonie Raya ([id number] on 12/14/2018 11:41:08 PM Referred By: Leonie Raya Confirmed By:Leonie Raya
== END 2018-12-13 09:27 | disposition home or self-care (01) ==
DX: M79.621 Pain in right upper arm (principal); Z79.01 Long term (current) use of anticoagulants; I10 Essential (primary) hypertension; E03.9 Hypothyroidism, unspecified; Z86.711 Personal history of pulmonary embolism
CPT/HCPCS: 84484-ER